=== PATIENT | male | born 1985 | race Caucasian/White ===

== ENCOUNTER → 2019-12-24 13:51 | Outpatient (CLI) | payer OTHER, SELFPAY | PROVIDERS: PCP Internal Medicine; Referring Provider Nurse Practitioner; Visit Provider Nurse Practitioner | DX: R00.2 Palpitations (principal) | CPT/HCPCS: 93225; 93226 ==

== ENCOUNTER 2020-05-01 09:00 | Outpatient (RCR) | payer OTHER, SELFPAY ==
--- NOTE | 2020-05-01 11:15 | BH.SGPN.GN ---
Behaviors/Verbalizations/Mental Status: []Client alert and oriented, casually dressed, hygiene appeared to be tended to. Eye contact good. Motor activity appropriate. Speech within normal limits. Affect unable to gather due to wearing a mask for COVID-19 protocol, mood depressed. Thoughts linear, logical, no signs of hallucinations or delusions Client Response/Progress/Benefit: []Client responded well to session, attentive and mostly passive. Group discussed the negative consequences of not acknowledging one?s strengths. Connected with the benefits of recognizing personal strengths on improving mental health which included: increased self-confidence, increased willingness to try new things, and better management of symptoms. Client struggled to identify personal strengths, but was eventually able to identify love of learning, curiosity, and intelligence as strengths. Client attentive while the group discussed strategies to help them acknowledge strengths more often. Appeared to benefit from recognizing personal strengths and identifying strategies to increase recognition of strengths. Will continue IOP tx to prevent decompensation, improve daily functioning, and reduce negative thinking that reinforces depression. Narrative Note: []
--- NOTE | 2020-05-02 08:37 | BH.COMM ---
Communication Note - Communication with Client Communication Note: Met with pt to complete inital paperwork. No significant changes since pre-admission screening. Completed [facility] [facility] Scre[facility]. Low risk. No SI in the past month.
--- NOTE | 2020-05-03 09:07 | BH.NA_ITS ---
Physical Data - Vital Signs Pulse Rate: 72 Blood Pressure: 132/84 - Height/Weight Height: 1.8 m - stated Weight:: 116.573 kg - actual Weight in Pounds: 257.0 lbs Nutritional History - Appetite Nutritional Instructions:: If client shows signs of a swallowing problem, weight change of 10 pounds or more in the last month, or is on a diabetic diet, the physician will review and request a dietitian consult, as appropriate. All unintentional weight loss will be referred to the physician for decision on need for dietitian consult. Describe your appetite:: Good Have you noticed a change in your eating habits lately?: Yes - Client states increased appetite and stress eats. Functional Assessment - Sleep Pattern Describe any problems with sleeping: Client states difficulty falling asleep and difficulty waking up. Client states that he recieves an average of 6-8 hours/night. - Activities Motor Activity:: Functional Sensory/Communication Assess - Communication Problems Do you have difficulty understanding what people are saying?: No Medical Problems/History - Additional History Additional comments:: Client states h/o Depression and Anxiety. Surgical History - Surgical History Have you had any surgeries? If so, list type and date:: Yes - Vasectomy Substance Abuse - Substance Abuse Please describe substance abuse in the last 30 days:: Client states he drinks a beer daily. Client states past smoking history, quit 17yrs ago, denies current tobacco use. Client states substance use consisting of marijuana but denies any current substance use. Client states consumes caffiene daily consisting of coffee and/or pop. Mental Status Summary - Mental Status Significant Findings/Observations on Appearance and Mood:: Client is alert and orientede x4. Client is casually groomed. Client is cooperative with assessment, eye contact is fair during conversation. Client's speech with normal rate and volume, coherent and spontaneous. Client appears mildly depressed and mildly anxious during assessment. Client makes logical associations, normal processing. Client denies delusions and hallucinations, none evident. Client appears with good judgement and insight. Suicide Assessment - Suicidal Ideation Are you currently or have you been suicidal in the past?: Yes - Client states SI in past as a child. Client denies current SI/HI. Suicidal Intentional Rating Scale (SIRS): Suicidal thoughts (past) Physician Notification: If Active suicidal thoughts/Will not contract for safety is checked, contact physician and document in the Physician Notification section below. Past Psychiatric History - MH Treatment Hx Past Psychiatric Medications:: Client states has been on past psychiatric medications consisting of Valium, Effexor, and many others. Age of first mental health symptoms: Client states that he was officially diagnosed and placed on medication at approximately age 20. Client states that he was seeing a therapist since 9yo. Describe (age, circumstance, etc) any past hospitalizations: Client denies any past psychiatric hospitalizations. Current providers for mental health treatment (counselor, psychiatrist, family caseworker, etc.): Client states director of clinical trials Lew Curtis and therapist is Honorio Nina. Fall Risk Assessment - Age Age: Less than 60 - Mental Status Mental Status: Willing & able to ask for assistance when needed - Physical Status Physical Status: No problems - Impairments Impairments: None - Elimination Elimination: Continent AND independent - Gait or Balance Gait or Balance: Walks independently - Hx of Falls History of falls in the past 6 months: No known history - Medications/Substances Psychotropics:: Antidepressants, Anxiolytics (e.g. benzodiazepines) Medications/substances used within the past 24 hours or ordered to administer: 1-2 of the medications/substances listed above - Total Score Total Points:: 1 RN Summary of Impressions - Impressions Recommendations: Include psychiatric and medical issues, treatment planning recommendations, and discharge planning needs. Impressions: Psychiatric Issues: Major depressive disorder, recurrent, severe without psychosis; panic disorder; anxiety disorder, NOS. - Level of Care How do the client's current symptoms and functional deficits support need for this level of care?: Client details onset of current episode, stating his symptoms started getting worse approximately 8-10 months ago, however feels over the past month it has progressively worsened more. Client states that is mental health symptoms and work are stressors. Client states that he cannot pin point if disiplinary action by employer was caused from his mental health conditions causing poor performance at work or poor performance causing the mental health symptoms. 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 Client states that he has been experiencing panic attacks. IOP will promote gains and prevent further decompensation while providing social support and skills training.
[2020-05-03 09:56] VITALS: BP 132/84; PULSE 72
--- NOTE | 2020-05-03 11:19 | BH.SGPN.GN ---
Behaviors/Verbalizations/Mental Status: [] Client alert and oriented, casually dressed and groomed. Eye contact fair, avoidant. Motor activity appropriate. Speech within normal limits, quiet and limited input provided. Affect unable to gather due to client wearing a mask for COVID-19 protocol. mood anxious and depressed. Thoughts linear, logical, no signs of hallucinations or delusions. Client Response/Progress/Benefit: [] Pt was engaged throughout AEB nodding and taking notes during discussion, however remained a passive participant throughout. Pt actively listening as the group identified internal consequences of ignoring or not managing stressors resulting in anger. Group identified: isolation, decreased self-esteem, guilt, increased depression, and problems not being resolved as potential consequences. Pt again remained attentive as group brainstormed healthy coping skills for better managing anger which included: deep breathing, music, exercise, taking breaks, and talking to a healthy support. Pt completed the worksheet activity, however declined share skills pt selected to incorporate this week to manage anger. Pt appeared to benefit from identifying different techniques to manage anger as well as gaining awareness of potential consequences of unmanaged anger. Progress limited due to it being pt second day in IOP group and still struggling to adjust to the group environment. Pt to continue IOP tx to increase healthy coping, improve management of depression, and prevent decompensation. Narrative Note: []
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
--- NOTE | 2020-05-03 13:21 | BH.PSY.EVA_ITS ---
Initial Treatment Plan - Patient Information Visit Information: ADMISSION DATE: EXPECTED LOS: 4-6 weeks - Problems/Symptoms Problem #1:: Depression Symptom:: sadness, anhedonia, hopelessness, worthlessness, decreased concentrat ion, guilt, low energy Problem #2:: Anxiety Symptom:: worry, rumination, panic attacks
--- NOTE | 2020-05-05 09:00 | BH.SGPN.GN ---
Behaviors/Verbalizations/Mental Status: []Client alert and oriented, neatly dressed and groomed. Eye contact poor. Motor activity appropriate. Speech within normal limits. Affect unable to gather due to wearing a mask for COVID-19 protocol, mood depressed. Thoughts linear, logical, no signs of hallucinations or delusions. Reviewed client?s symptom tracker, no risk for suicidal ideation, plan, or intent as of 05/05/20. Client Response/Progress/Benefit: []Client responded well to session, receptive to feedback from peers. Client reports feeling confused today. Client stated he has this continual Friday feeling which client describes as constant agitation and dread. Client reported this is first week in IOP and he is not sure of what to expect still. Client struggled to identify positives at first, but with gentle challenging from therapist, client identified seeing his outpatient therapist last night and it being Friday as positives. Appeared to benefit from receiving supportive statements from peers. Will continue IOP tx to prevent decompensation of symptoms, improve daily functioning, and decrease distortions. Narrative Note: []
--- NOTE | 2020-05-05 10:03 | BH.SGPN.GN ---
Behaviors/Verbalizations/Mental Status: []Client alert and oriented, casual dress, hygiene tended to. Eye contact fair. Motor activity appropriate. Speech within normal limits. Affect could not be assessed due to pt wearing a face mask as precaution against coronavirus. mood depressed. Thoughts linear, logical, no signs of hallucinations or delusions. Client Response/Progress/Benefit: []Pt engaged in session AEB pt providing input at times during discussion and listening attentively to peers. Pt reported sometimes after setting a boundary he won't follow through with the boundary because feels too guilty. Seemed to recognize how lack of follow through with boundaries impacts her mental health negatively. Pt assisted group with identifying that boundaries can impact the following: how much someone takes advantage of you, either bring people closer or push people away, keep us safe, reduce the risk of peer pressure, impact positive or negative self-worth. Pt seemed to benefit from increased awareness of how poor boundaries can negatively impact mental health. Will continue IOP tx to increase use of healthy coping, work on self-forgiveness from past mistakes, and prevent decompensation. Narrative Note: []
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
--- NOTE | 2020-05-05 13:40 | BH.MTP_ITS ---
Master Treatment Plan - Patient Information Program Physician:: Dr. Paula Mcneil Primary Therapist:: Bel Leroy - Psychiatric Diagnoses Psychiatric Diagnoses:: Major depressive disorder, recurrent, severe without psychosis F33.2; panic disorder; anxiety disorder, NOS. Diagnosis Code(s):: F 33.2 - Estimated LOS Estimated LOS (in weeks):: 6 Problem/Goal #1 - Problem/Goal #1 Stated Goal:: Client will reduce depressive symptoms, worthlessness, lack of concentration, and negative core beliefs associated with major depressive disorder. Description of Barriers: Client has a history of trauma as a child as well as a history of one previous suicide attempt as a child. Client reports long-standing history of low self-esteem, distorted image of self, and difficulty giving himself credit for things. Client reports I can justify anything which makes it difficult for client to challenge negative thinking. Client's work is a significant source of stress for client. Client reports feeling like he is in a professional crisis as he has applied to several jobs with no luck. Client also reports the state of the world as a contributor for his worsening mental health. Functional Impact: Client is a 35-year-old male with a history of MDD, KESHAWN, and PTSD. Client was referred to [facility] by his outpatient therapist due to worsening mental health symptoms impacting client's functioning at home and at work. Client reports belief that his mental health is impacting his work and leading to 'brown outs or lost time. Client has been disciplined by his employer and client is fearful he will be terminated. Client reports significant anhedonia, feeling lost and adrift, poor sleep, hopelessness, low motivation, low energy, isolation, and increased appetite. Client also endorses panic attacks 1-2 times a week, ruminations, and negative thinking that reinforcing anxiety, depression, and low self-esteem. Client's symptoms are causing significant impairment in client's social, occupation, and family functioning. Goal Relevant Strengths/Supports: Client presents as a kind, funny, intelligent, and motivated to improve his mental health symptoms. Client is connected with outpatient counseling and psychiatry services. Client reports support from his and has two children. Client is knowledgeable of some coping skills and willing to learn alternative ways to manage mental health symptoms. - Objectives Objective #1 Stated Objective: Client will learn and utilize 2-3 healthy coping strategies to manage depressive symptoms as shown by reduced DSM-5 cross-cutting symptom measure score. Interventions: Through group and individual sessions, therapist will assist client in learning internal coping strategies to manage depressive symptoms, along with helping client identify triggers. Therapist will teach client about self-compassion, self-care, and personal resilience factors and how they can benefit the healing process. Discharge Criteria: Client will have achieved this goal when his DSM-5 symptoms for depression have decreased and he can verbalize and has practiced at least 2 healthy coping strategies. Target Date: 06/12/20 Review Date: 05/31/20 Status: open Objective #2 Stated Objective: Client will identify and replace 2-3 negative thinking patterns that reinforce depressive symptoms, self-hate, and negative self-talk. Interventions: Through groups and individual therapy, client will be provided with education on cognitive distortions, mistaken beliefs, and identifying and combating negative self-talk. Therapist will assist client in recognizing triggers for increased self-deprecating and depressive thought patterns. Therapist will help client explore connection between thoughts, feelings, and actions and help client reframe depressive thought patterns. Therapist will help client gain awareness of why client has developed negative thoughts and core beliefs of self and teach client how to reframe these thoughts. Discharge Criteria: Client will have accomplished this goal when client can identify and replace at least 2 negative thinking patterns with more realistic, positive statements. Target Date: 06/12/20 Review Date: 05/31/20 Status: open Problem/Goal #2 - Problem/Goal #2 Stated Goal:: Client will reduce overall frequency, intensity, and duration of anxiety to improve functioning. Description of Barriers: Client has a history of trauma as a child as well as a history of one previous suicide attempt as a child. Client reports long-standing history of low self-esteem, distorted image of self, and difficulty giving himself credit for things. Client reports I can justify anything which makes it difficult for client to challenge negative thinking. Client's work is a significant source of stress for client. Client reports feeling like he is in a professional crisis as he has applied to several jobs with no luck. Client also reports the state of the world as a contributor for his worsening mental health. Functional Impact: Client is a 35-year-old male with a history of MDD, KESHAWN, and PTSD. Client was referred to [facility] by his outpatient therapist due to worsening mental health symptoms impacting client's functioning at home and at work. Jodi marin reports belief that his mental health is impacting his work and leading to 'brown outs or lost time. Client has been disciplined by his employer and client is fearful he will be terminated. Client reports significant anhedonia, feeling lost and adrift, poor sleep, hopelessness, low motivation, low energy, isolation, and increased appetite. Client also endorses panic attacks 1-2 times a week, ruminations, and negative thinking that reinforcing anxiety, depression, and low self-esteem. Client's symptoms are causing significant impairment in client's social, occupation, and family functioning. Goal Relevant Strengths/Supports: Client presents as a kind, funny, intelligent, and motivated to improve his mental health symptoms. Client is connected with outpatient counseling and psychiatry services. Client reports support from his and has two children. Client is knowledgeable of some coping skills and willing to learn alternative ways to manage mental health symptoms. - Objectives Objective #1 Stated Objective: Client will identify 2-3 cognitive distortions or mistaken beliefs that lead to rumination and learn 2-3 ways to manage these thoughts to reduce anxiety. Interventions: Therapist will provide education on the most common cognitive distortions and teach client the connection between thoughts, emotions, and feelings. Therapist will assist client in identifying, challenging, and replacing dysfunctional thoughts with positive, more realistic thoughts. Therapist will use CBT and DBT techniques to help client gain awareness of thinking errors and learn how to more effectively handle negative thoughts. Therapist will also help client increase his distress tolerance skills. Discharge Criteria: client will have accomplished this goal when can identify at least 2 cognitive distortions and at least 2 coping skills to manage negative th oughts. Target Date: 06/12/20 Review Date: 05/31/20 Status: open Objective #2 Stated Objective: Client will identify 2-3 anxiety triggers and 2 calming coping skills to reduce anxiety as shown by decreased DSM-5 cross cutting symptom measure scores. Interventions: Therapist will help client increase awareness of anxiety triggers and educate client on the ways anxiety impacts overall health. Therapist will teach client various calming and mindfulness strategies to promote emotional regulation and reduction of anxiety. Therapist will encourage client to implement healthy coping skills on a regular basis. Discharge Criteria: Client will have accomplished this goal when can report at least 2 triggers for anxiety and 2 calming strategies to manage symptoms. Additionally, client will have accomplished this goal when she can report reduced DSM-5 cross cutting symptoms for anxiety. Target Date: 06/12/20 Review Date: 05/31/20 Status: open
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
--- NOTE | 2020-05-08 09:00 | BH.SGPN.GN ---
Behaviors/Verbalizations/Mental Status: []Client alert and oriented, casually dressed and groomed. Eye contact fair. Motor activity appropriate. Speech WNL. Affect unable to gather due to wearing a mask for COVID protocol. Mood agitated. Thoughts linear, no signs of hallucinations or delusions. Reviewed client's daily symptom tracker, no risk noted for suicidal ideations or intent. Client Response/Progress/Benefit: []Client responded well to session, attentive and engaged. Client reports feeling all over the place, but kind of okay today. Client shared he is apprehensive about his mood improving as client reports belief that the only reason for this is being off work. Receptive to gentle challenging from therapist. Client reported he used a healthy coping skills by removing twitter from his phone. Client shared he got his [place] paperwork taken care of which reduces some stress as well. Client continues to endorse anhedonia, ruminations, and a depressed/anxious mood. Client shared he worries about returning to work and how this will impact client's mental health. Appeared to benefit from gentle thought challenging and connecting with peers. Will continue IOP tx to promote the use of healthy coping skills, reduce negative thoughts, and improve daily functioning. Narrative Note: []
--- NOTE | 2020-05-08 10:12 | BH.SGPN.GN ---
Behaviors/Verbalizations/Mental Status: []Client alert and oriented, casually dressed. Eye contact fair. Motor activity appropriate. Speech within normal limits. Affect could not be assessed due to pt wearing a mask as a precaution during the Covid-19 pandemic. Mood depressed. Thoughts linear, logical, no signs of hallucinations or delusions. Client Response/Progress/Benefit: []Pt receptive to session, listening attentively to others and providing input when elicited by therapist. Appeared to listen as the group brainstormed the positive and negative aspects of stress on physical and mental health. Group worked together to define stress and provided input during discussion about eustress vs distress. Client identified his stressors include: dissatisfied with job, looking for a job during the pandemic, money problems, fear about kids having to return to school during the pandemic. Client states when he is overwhelmed with stress he shuts the world out and has a freeze response. Seemed to benefit from increased awareness of his current stressors and impact of too much stress on the mind and body. Recommended to continue IOP tx to increase healthy skill application, increase acceptance of anxious thoughts, and prevent decompensation. Narrative Note: []
--- NOTE | 2020-05-08 11:21 | BH.SGPN.GN ---
Behaviors/Verbalizations/Mental Status: []Client alert and oriented, casually dressed and groomed. Eye contact good. Motor activity appropriate. Speech within normal limits, soft. Affect unable to gather due to wearing a mask for COVID-19 protocol, mood depressed, anxious. Thoughts linear, logical, no signs of hallucinations or delusions. Client Response/Progress/Benefit: [] Pt engaged in session as evidenced by listening attentively to others and taking notes. Remained mostly passive throughout. Pt attentive during discussion about the 4 A's and taking notes as group discussed strategies for practicing each. Pt expressed experiencing some difficulties in identifying a skill for managing one of his current identified stressor of finding a new job. Pt discussed feeling the skills did not fit his current situation, though with help from the group was able to identify possible skills to use. Pt seemed to benefit from increased awareness of the impact of stress on mental health and review of stress management strategies. Progress noted in increased engagement and willingness to think about ways of applying skills learned to his own life. Will continue IOP tx to promote use of healthy coping skills, continue to reduce anxiety and depression levels, prevent decompensation, and improve mood stability. Narrative Note: []
--- NOTE | 2020-05-09 09:05 | BH.SGPN.GN ---
Behaviors/Verbalizations/Mental Status: [] Eye contact is good. Motor activity is appropriate. Appearance is casual. Speech is Appropriate. Mood is anxious. Affect is congruent. Thoughts are linear and logical. No evidence of psychosis. Reviewed daily check in sheet and no reports of suicidal ideations or intent. Client Response/Progress/Benefit: [] Pt was an active participant in group discussion. Emotion for today is positive however is skeptical that it will last. Notes decreased anxiety however is quick to negate progress stating only reason is that I've been off work. Shared that he is slowly trying to change his routine in regards to unhealthy behaviors and thinking. States that it has been awkward and difficult however is optimistic. Also shared some communication challenges with . Progress noted per pt report. Benefited from group support, encouragement, and feedback. Will continue in IOP to prevent decompensation and to improve daily functioning. Narrative Note: []
--- NOTE | 2020-05-09 10:15 | BH.SGPN.GN ---
Behaviors/Verbalizations/Mental Status: []Client alert and oriented, casual dress, hygiene tended to. Eye contact fair. Motor activity appropriate. Speech within normal limits. Affect unable to gather due to client wearing a mask for COVID protocol, mood dysthymic. Thoughts linear, logical, no signs of hallucinations or delusions. Client Response/Progress/Benefit: []Client responded well to session, attentive throughout. Listened and participated throughout group discussion defining conflict and the differences between internal and external conflict. Group reported the benefits of addressing conflict as well as identified and discussed consequences of not addressing conflict. Client attentive and contributing during psychoeducation of the different conflict resolution styles. Client reports his conflict style goes from avoiding to competing. Client stated he will avoid conflict and then his emotions will build up over time and client will ?pick fights.? Client shared this impacts his self-esteem and causes client to ?just end up giving in.? Progress noted in client?s increased self-awareness of distortions. Will continue IOP tx to prevent decompensation, increase use of healthy coping skills, and improve daily functioning to help client return to work. Narrative Note: []
--- NOTE | 2020-05-09 11:17 | BH.SGPN.GN ---
Behaviors/Verbalizations/Mental Status: [] Client alert and oriented, casually dressed and groomed. Eye contact good. Motor activity appropriate. Speech within normal limits. Affect unable to gather due to wearing a mask for COVID-19 protocol, mood depressed and anxious. Thoughts linear, logical, no signs of hallucinations or delusions. Client Response/Progress/Benefit: [] Pt engaged in session AEB listening attentively to others and providing input throughout. Increased contribution to group compared with prior sessions. Pt did well to participate during the activity in which participants were challenged to eliminate various items through group census. Pt contributed to processing discussion identifying conflict resolution skills used to complete the task, as well as identify additional skills for better managing conflict in daily life. Appeared to benefit from psychoeducation regarding impact of conflict on mental health and relationships and working with group to identify healthy skills for conflict resolution. Pt expressed knowing he struggles with avoidance though declined to identify a conflict resolution skill he could use this week to reduce avoidance behaviors. Progress limited as pt continues to struggle with internalizing and applying skills learned to managing his own mental health sx. Will continue IOP tx to promote use of healthy coping skills, continue to reduce negative thinking, and improve mood stability. Narrative Note: []
--- NOTE | 2020-05-11 10:12 | BH.SGPN.GN ---
Behaviors/Verbalizations/Mental Status: []Client alert and oriented, casually dressed. Eye contact good. Motor activity appropriate. Speech within normal limits. Affect congruent, though difficult to assess as pt wearing mask per COVID-19 protocol. mood depressed and anxious. Thoughts linear, logical, no signs of hallucinations or delusions. Client Response/Progress/Benefit: []Client engaged throughout session AEB providing input to discussion and taking notes throughout. Connected with discussion on how coping with external crises by using unhealthy coping skills could result in a personal crisis. Client noted that ?sometimes it?s difficult to differentiate what?s in your control and what?s not, making it hard to manage potential crisis?. Group reported that it is important to have awareness of warning signs which can prevent reaching crisis point. Group identified warning signs for crisis and client completed the personal warning signs worksheet. Client identified personal crisis warning signs to include: difficulty concentrating, memory problems, and loss of motivation. Benefited by increasing awareness of crisis and personal warning signs. Progress noted in client increased engagement and insight into own mental health warning signs. Will continue IOP tx to increase healthy coping, improve mood stability, and prevent decompensation. Narrative Note: []
--- NOTE | 2020-05-11 11:11 | BH.SGPN.GN ---
Behaviors/Verbalizations/Mental Status: []Client alert and oriented, casually dressed and groomed. Eye contact fair. Motor activity appropriate. Speech within normal limits. Affect unable to gather due to client wearing a mask for COVID-19 protocol. Mood dysthymic. Thoughts linear, logical, no signs of hallucinations or delusions. Client Response/Progress/Benefit: []Client responded well to session as evidenced by client listening attentively to others and providing input throughout session. Client identified his warning signs for crisis and gained further awareness of earliest warning signs. Client used the warning signs: difficulty concentrating, negative thinking, and loss of motivation to create his crisis plan. Client created a crisis action plan to help client better manage warning signs for crisis. Client?s plan included: making a checklist, removing distractions, setting realistic expectations, positive affirmations, opposite action, and trying enjoyable activities. Client recognizes that his family and coworkers can help client. Client appeared to benefit from creating a crisis action plan and increasing self-awareness. Client to continue IOP tx to prevent decompensation, improve the use of healthy coping skills, and increase work-related functioning. Narrative Note: []
--- NOTE | 2020-05-12 09:01 | BH.SGPN.GN ---
Behaviors/Verbalizations/Mental Status: []Client alert and oriented, casual dress. Eye contact good. Motor activity appropriate. Speech within normal limits. Mood dysthymic, anxious. Affect congruent, though difficult to gather due to client wearing mask per [address] guidelines. Thoughts linear, logical, no signs of hallucinations or delusions. Reviewed client?s symptom tracker, no signs of suicidal ideation, plan, or intent as of today. Client Response/Progress/Benefit: []Pt responded well to session, actively engaged throughout and providing increased input compared to prior sessions. Reports feeling anxious, confused, and excited today which he attributes to having mixed feelings about the mental health homework he had been given earlier this week. Described that he was to work on identifying areas in which he has accomplished something and practice giving himself credit for these things. Pt expressed mixed emotions as he is excited to be working on an area of his life he has struggled so significantly with but is also anxious about doing so. Discussed experiencing disqualifying thoughts and struggling to manage discomfort of working on his goal. Pt was receptive of and appeared to benefit from support and suggestions for improving comfort in use of positive affirmations provided by the group. Progress noted in pt self-report of improved utilization of opposite action skills and increased tx engagement. Will continue IOP tx to increase coping skills which promote mood stability, improve daily functioning, and reduce intensity of symptoms. Narrative Note: []
--- NOTE | 2020-05-12 10:15 | BH.SGPN.GN ---
Behaviors/Verbalizations/Mental Status: []Client alert and oriented, neatly dressed and groomed. Eye contact good. Motor activity appropriate. Speech within normal limits. Affect unable to gather due to wearing a mask for COVID-19 protocol, mood depressed and anxious. Thoughts linear, logical, no signs of hallucinations or delusions. Client Response/Progress/Benefit: []Client active participant in group AEB client contributing thoughts and ideas throughout session and listening attentively to peers. Client connected with the quote and shared ?I?m really good at imagining the failure states but not the successful ones.? Group worked together to identify barriers to making changes or taking action in their lives which included: habits, negative mindset, fear of failure, negative thinking, lack of resources, and toxic people. Group also identified that even though there are barriers to change, change is important in order to improve mental health. Client identified areas he would like to take back control over in life to include: fear of failure, lack of self-esteem, lack of self-confidence, and shutting down when he gets overwhelmed. Client shared these things are ?keeping me from where I should be.? Benefited from group through awareness of personal areas she wants to improve and benefits to taking action towards mental wellness. Will continue IOP tx to further decrease negative thinking that reinforces depression and anxiety, improve self-talk, and improve mood stability. Narrative Note: []
--- NOTE | 2020-05-12 12:41 | BH.MDN ---
Multi-Disciplinary Note - Note 60-min Individual Time Started:: 11:24 Date: 05/12/20 Purpose of session/treatment goals addressed:: The purpose of this session was to address current symptoms, stressors, and homework. Another goal was to practice cognitive restructuring and dialectic thinking. Other topics included: vulnerability and self-compassion. Eye Contact:: Fair Motor Activity:: Appropriate Appearance:: Casual Speech:: Appropriate Mood:: Anxious, Dysthymic Affect:: Congruent - tearful Thoughts:: Linear, Logical, No evidence of hallucinations/delusions noted Staff Interventions:: Therapist used active listening and open-ended questions to explore client's current stressors, symptoms, and completion of homework. Therapist provided emotional support and processed homework with client. Therapist provided psychoeducation on maintenance cycles and dialectical thinking. Therapist used cognitive restructuring to help client identify and challenge unrealistic expectations that reinforce self-depreciation, self-judgement, and fear of failure. Therapist used strengths perspective to empower client on his resilience and helped client identify times he has succeeded in the past. Therapist gave client homework to watch a TedTalk on the power of vulnerability, write this weekend, and practice dialectical thinking. Client Response:: Client responded well to session, open to meeting with therapist. Client shared he completed the homework and it was really hard. Client acknowledges that he has a lot of negative thoughts about himself. Client shared he frequently uses labeling, disqualifying the positives, and overgeneralizing. 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 Client recognizes that he has been using self-talk like this for years, so it will take time to challenge these thoughts. Client also gained awareness that he is often interrupted by failure memories and that he rarely focuses on his successes, even though he logically knows he has them. Receptive to discussion of dialectical thinking and how it can help challenge client's distorted thoughts of self. Connected with the example of I'm struggling and I have made progress. Client recognized that his job and failure are his two biggest triggers for negative thinking. Discussed how working through these thoughts will require work and vulnerability. Client reported belief he is not a vulnerable person and shared he views vulnerability as weakness. Challenged this belief and willing to watch a TedTalk on the power of vulnerability. Client also willing to write this weekend and practice dialectical thinking. Risks/Concerns:: Client denies any active suicidal ideations, plan, or intent as of 05/12/20. Progress Toward Goals/Plan:: Client appears to be making positive strides AEB client completing his homework from last session and participation in group sessions. Client reports feeling somewhat better from last week, but client is fearful because I think it's just because I'm off work. Client continues to endorse a depressed mood, anhedonia, crying spells, low self-esteem, lack of concentration, ruminations, and anxiety. Client identified numerous cognitive distortions he has about himself and is willing to work on these. Will continue IOP tx to prevent decompensation of symptoms, increase self-confidence, and improve daily functioning. Time Stopped:: 12:25
--- NOTE | 2020-05-15 09:01 | BH.SGPN.GN ---
Behaviors/Verbalizations/Mental Status: []Client alert and oriented, casual dress, hygiene tended to. Eye contact fair, often looking down. Motor activity appropriate. Speech within normal limits. Affect constricted, mood depressed, anxious. Thoughts linear, logical, no signs of hallucinations or delusions. Reviewed client?s symptom tracker, pt denies current suicidal thoughts or intention to date. Client Response/Progress/Benefit: [] Pt was an active listener throughout group discussion, willing to openly process thoughts and emotions with the group. Pt stated feeling ?agitated/frustrated? today as he has been continuing to struggle with negative thoughts about having to eventually return to work. Pt shared that he knows he will be miserable if he returns but feels it is the only option. Went on to indicate that he had considered staying home with his for the next year as they will be homeschooled due to the COVID-19 pandemic; however, is apprehensive of his ability to manage caregiving responsibilities as well. Expressed feeling overwhelmed and trapped by unappealing choices. Appeared to benefit from support of the group and fellow participants helping to encourage and normalize pt current frustrations. He did well to identify how focusing on his mental health is most important and that he can use his supports to help make his decision as well. Pt continues to struggle with low self-esteem and distorted thoughts. Pt recommended to continue IOP level of care to increase healthy coping, improve mood management, and prevent decompensation. Narrative Note: []
--- NOTE | 2020-05-15 10:20 | BH.SGPN.GN ---
Behaviors/Verbalizations/Mental Status: []Client alert and oriented, casual dress, hygiene tended to. Eye contact fair. Motor activity appropriate. Speech within normal limits. Affect could not be assessed due to pt wearing a face mask as precaution against coronavirus. mood depressed. Thoughts linear and logical. No evidence of delusions or hallucinations. Client Response/Progress/Benefit: []Pt passive participant AEB pt providing limited input throughout session, however did appear to be taking notes and listen attentively to peers. Pt appeared to connect with the topic of fear of failure. Pt stated when he experiences failure he feels embarrassed, difficult to accept and the consequences are lingering. Pt reported fear of failure has held him back from trying new things. Pt stated he sets him self up to fail at times by having the expectation prior to an activity or task that he won't be able to do it. Engaged and positive during the group activity. Pt appeared to benefit from gaining awareness of the impact of fear of failure can have on one?s mental health and wellbeing. Progress seems hindered by pt's continued difficulty with challenge negative and distorted thoughts. Will continue IOP tx to increase use of healthy coping skills, challenge distorted thoughts and prevent decompensation. Narrative Note: []
--- NOTE | 2020-05-15 11:20 | BH.SGPN.GN ---
Behaviors/Verbalizations/Mental Status: []Client alert and oriented, casual appearance. Eye contact good. Motor activity appropriate. Speech within normal limits. Affect unable to gather due to wearing a mask for COVID-19 protocol, mood dysthymic. Thoughts linear, logical, no signs of hallucinations or delusions. Client Response/Progress/Benefit: []Client responded well to session, participating during the group activity and willing to complete the worksheet. 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 Client able to identify barriers that reinforce fear of failure which included: procrastination, disorganization, apathy, perception of past events, freezing up in the face of stress, and cognitive distortions. Client attentive during discussion of the different strategies to help overcome fear of failure. Group identified strategies such as: getting comfortable with the uncomfortable, identifying strengths, setting boundaries, self-compassion, and reaching out to supports. Client appeared to benefit from learning ways to overcome fear of failure. Will continue IOP tx to reduce negative thinking that reinforces depression and anxiety, improve mood stability, and increase self-confidence. Narrative Note: []
--- NOTE | 2020-05-16 09:05 | BH.SGPN.GN ---
Behaviors/Verbalizations/Mental Status: [] Eye contact is good. Motor activity is appropriate. Appearance is casual. Speech is Appropriate. Mood is depressed. Affect is flat. Thoughts are linear and logical. No evidence of psychosis. Reviewed daily check in sheet and no reports of suicidal ideations or intent. Client Response/Progress/Benefit: [] Pt was an active participant in group discussion. Emotion for today is grumpy. Frustrated and discouraged. Ruminating on his job and whether or not he should return. Do I work or not. Not confident he can motivate himself and follow through with responsibilities. He again began to overthink and over-analyze which led to immobility and no action. Discussed how this has impacted areas of his life in regards to decision-making. Group provided feedback regarding decision making strategies and emotions related to change. Pt was responsive. Benefited from group feedback, support, and encouragement. Will continue in IOP to prevent decompensation, stabilize mood, and improve functioning to return to work. Narrative Note: []
--- NOTE | 2020-05-16 10:16 | BH.SGPN.GN ---
Behaviors/Verbalizations/Mental Status: []Client alert and oriented, casual dress, hygiene tended to. Eye contact good. Motor activity appropriate. Speech within normal limits. Affect constricted, mood dysthymic. Thoughts linear, logical, no signs of hallucinations or delusions. Client Response/Progress/Benefit: []Engaged participant AEB pt providing input throughout session, listening attentively to others and taking notes. Engaged during psychoeducation portion reviewing fixed mindset. Pt worked with group to identify how a fixed mindset can impact our mental health which included: decreased motivation, giving up when faced with a setback, not asking for help, low self-esteem, and staying stuck. Seemed to connect with others when discussing example fixed mindset thoughts. Pt identified one fixed thought he has is, I should have done something different. Pt did well to recognize that this fixed thought leads to pt feeling negative about his choices in the past and has difficulty moving forward. Seemed to benefit from group by increasing awareness of how one's mindset impacts mental health. Pt to continue IOP level of care to increase utilization of healthy coping skills, continue to practice challenging negative and distorted thoughts, and prevent decompensation. Narrative Note: []
--- NOTE | 2020-05-16 11:16 | BH.SGPN.GN ---
Behaviors/Verbalizations/Mental Status: [] Client alert and oriented, casually dressed and groomed. Eye contact fair, often looking down. Motor activity appropriate. Speech within normal limits, quiet. Affect unable to gather due to client wearing a mask as part of COVID-19 protocol. mood anxious and depressed. Thoughts linear, logical, no signs of hallucinations or delusions. Client Response/Progress/Benefit: [] Client actively listening during discussion and taking notes throughout. Client did well to work with group on identifying characteristics and benefits of adopting a growth mindset. Client provided input during example activity in which participants helped reframe example fixed thoughts into growth mindset thoughts. Reports that being able to reframe thoughts could improve self-confidence. Client worked to apply skills learned to reframe his own personal fixed thoughts. Reframed thought of ?I don?t deserve it? with growth mindset thought of ?Even though I may have made mistakes in the past, I am worthy of happiness and success?. Noted that this would aid in improving self-esteem. Benefitted from discussing benefits of growth mindset and brainstorming strategies for prompting growth-mindset. Client progress noted in self-report of improved ability to apply thought challenge skills. Will continue IOP tx to continue to promote active thought challenging and skill application as well as improve healthy coping repertoire. Narrative Note: []
--- NOTE | 2020-05-18 09:05 | BH.SGPN.GN ---
Behaviors/Verbalizations/Mental Status: [] Eye contact is good. Motor activity is appropriate. Appearance is casual. Speech is Appropriate. Mood is depressed. Affect is flat. Thoughts are linear and logical. No evidence of psychosis. Reviewed daily check in sheet and no reports of suicidal ideations or intent. Client Response/Progress/Benefit: [] Pt was an active participant in group discussion. Emotion for today is useless. Pt has been ruminating on several things related to work and his struggles in mental health. Was recently told by a family member that he is has passive dependency and he has been looking this up and trying to self-analyze. Majority of his concern lays with her ability to manage his unrealistic expectations of himself in his careers. Discusses some perfectionistic traits I have have to do everything the right way w/o mistakes Significant absolute thinking If I make a mistake I'm incompetent. Group attempted to challenge beliefs however pt was only somewhat receptive. Group also provided support and encouragement. No progress noted. Pt continues to struggle with thoughts which immobilize him. Anxiety about taking action. Will continue in IOP to prevent decompensation, improved functioning to return to work, and increase healthy coping skills. Narrative Note: []
--- NOTE | 2020-05-18 11:20 | BH.SGPN.GN ---
Behaviors/Verbalizations/Mental Status: []Client alert and oriented, casually dressed and grooming appropriate. Eye contact fair, often looking down at table. Motor activity appropriate. Speech within normal limits, quiet. Affect congruent though difficult to determine as client wearing a mask per COVID-19 protocol, mood depressed, anxious, irritable. Thoughts linear, logical, no signs of hallucinations or delusions. Client Response/Progress/Benefit: [] Client engaged in session AEB listening to discussion and taking notes throughout, mostly passive in participation. Client attentive during the continued discussion on what prevents moving on to the ?next chapter? in our life and the importance of problem-solving solutions to address identified barriers. Continued to remain an active listener as peers brainstormed the components of A,B,C,D,E problem solving method and various strategies for promoting follow-through in each stage. Client identified feeling overwhelmed by options as a barrier preventing him from moving to the next chapter in mental health recovery. Shared that by problem-solving this barrier he will feel more confident and capable of making progress forward. Identified weighing his options and beginning to narrow them down as a realistic first step he can take in the problem-solving process. Appeared to benefit from learning about problem solving method and practice applying this to personal barriers identified. Progress limited as client continues to struggle with disqualifying the positives and anxiety preventing him from taking action in healthy decision making. Continues to struggle with distorted thought patterns. Will continue IOP tx to prevent decompensation, maintain gains, and continue to promote healthy change behaviors. Narrative Note: []
--- NOTE | 2020-05-19 09:00 | BH.SGPN.GN ---
Behaviors/Verbalizations/Mental Status: []Client alert and oriented, neatly dressed and groomed. Eye contact good. Motor activity appropriate. Speech within normal limits. Affect unable to gather due to wearing a mask for COVID-19 protocol, mood agitated. Thoughts linear, logical, no signs of hallucinations or delusions. Reviewed client?s symptom tracker, no risk for suicidal ideation, plan, or intent as of 05/19/20. Client Response/Progress/Benefit: []Client responded well to session, receptive to feedback and attentive. Client reports feeling scattered and agitated this morning. Client admits that yesterday he was not present during group and stated I wasn't present because I was resisting. Client stated he brought this up during in outpatient therapy appointment yesterday and processed this which was helpful. Client stated he has been implementing healthy coping skills to help manage depression and anxiety. Client reported he used opposite action this morning to get his laundry done and client acknowledges his self-awareness is improving. Appeared to benefit from reflecting on areas of growth. Progress noted in application of opposite action, but client can continue to reduce his distorted thinking. Will continue IOP tx to promote mood stability, decrease distortions, and further improve daily functioning. Narrative Note: []
--- NOTE | 2020-05-19 10:14 | BH.SGPN.GN ---
Behaviors/Verbalizations/Mental Status: []Eye contact is fair to good. Motor activity is appropriate. Appearance is casual. Speech is WNL, often making jokes, sarcastic remarks. Mood is depressed, agitated, anxious. Affect unable to gather due to wearing a mask for COVID-19 protection, appears congruent. Thoughts are linear and logical. No evidence of psychosis. Client Response/Progress/Benefit: []Pt was actively engaged AEB contributing some to discussion, taking notes, and participating in activity. Remained mostly passive in discussion, however. Connected with the topic of pitfalls and helped the group discuss barriers that keep them from choosing a healthier path to mental wellness. These barriers included; difficulties adjusting to change, fear of failure, habit, and lack of awareness. Pt reported that ?We don?t always know our behaviors are unhelpful?. Client was engaged during the activity and did well to provide support and encouragement to the group. Several times pt appeared to become anxious when the group faced potential failures during the task. He did well to use healthy coping skills to regulate these emotions and was able to advocate for his own needs when wanting to switch roles in the activity. Pt benefited from increased awareness on the impact that pitfalls can have on mental health. Progress noted in pt increased self-reflection and engagement; however, continues to struggle with rumination and distorted thoughts impacting progress. Will continue IOP tx to increase use of thought challenging, improve decision making skills, and better manage mental health sx. Narrative Note: []
--- NOTE | 2020-05-19 14:21 | BH.MDN ---
Multi-Disciplinary Note - Note 60-min Individual Time Started:: 12:16 Date: 05/19/20 Purpose of session/treatment goals addressed:: The purpose of this session was to address current symptoms, stressors, and negative thoughts. Another goal was to practice cognitive restructuring. Other topics included: behavioral activation and return to work. Eye Contact:: Good Motor Activity:: Appropriate Appearance:: Casual Speech:: Soft Mood:: Dysthymic Affect:: Congruent - tearful Thoughts:: Linear, Logical, No evidence of hallucinations/delusions noted Staff Interventions:: Therapist used active listening and open-ended questions to explore client's current stressors, symptoms, and negative thoughts. Therapist provided psychoeducation on maintenance cycles, distorted thoughts, and depression. Therapist used cognitive restructuring to help client identify and challenge distorted thoughts reinforcing depression and anxiety. Therapist helped client challenge a negative thought using a thought log. Therapist gave client homework to engage in behavioral activation activities using ALCIDES (accomplishment, closeness, and enjoyment). Client Response:: Client responded well to session, open to meeting with therapist. Client reported he did not watch the TedTalk, but he has been spending quality time with his family which has been helpful. 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 Client recognizes that his work environment is toxic for client due to the pressures and some of the employees. Client stated this environment triggers a lot of self-deprecating and distorted thoughts. Client willing to challenge one of these thoughts in session which was I am useless. Client stated when he thinks this he becomes very depressed, shuts down, and views himself as a failure. Client receptive to thought challenging which began by client defining useless. Client stated when something is useless it has no purpose and does not contribute. Client acknowledged that he does not meet this definition 100% of the time as client has contributed in many areas of his life. Client reported he is useful to his and children. Client practiced reframing this thought in a thought log. Discussed the cognitive triangle and the benefits behavioral activation can have on challenging distortions. Client receptive to thought challenging and behavioral activation for homework. Risks/Concerns:: Client denies any suicidal ideations, plan, or intent as of 05/19/20. Future oriented and multiple protective factors. Progress Toward Goals/Plan:: Client appears to be making positive strides AEB client?s increased ability to reframe distortions with support from therapist. Client is also engaging well in group sessions, but he continues to struggle with ?getting in my own head? which leads to client withdrawing and ruminating. Client continues to endorse a depressed mood, anhedonia, crying spells, low self-esteem, lack of concentration, ruminations, and anxiety. Client identified numerous cognitive distortions he has about himself and is willing to work on these. Will continue IOP tx to prevent decompensation of symptoms, increase self-confidence, and improve daily functioning. 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 Time Stopped:: 13:10
--- NOTE | 2020-05-23 09:00 | BH.SGPN.GN ---
Behaviors/Verbalizations/Mental Status: []Client alert and oriented, neatly dressed and groomed. Eye contact fair. Motor activity appropriate. Speech within normal limits. Affect unable to gather due to wearing a mask for COVID-19 protocol, mood anxious and depressed. Thoughts linear, logical, no signs of hallucinations or delusions. Reviewed client?s symptom tracker, no risk for suicidal ideation, plan, or intent as of 05/23/20. Client Response/Progress/Benefit: []Client responded well to session, attentive and listening to feedback from group. Client reports feeling agitated and really anxious this morning. Client reports next week he returns to work part-time and he is extremely anxious about how his return will go. Client reports I've been in the dark since I've been off for a month. Client shared he struggles with making a decision regarding work as client recognizes his work environment is toxic to his mental health. Client receptive to feedback from peers and encouragement from therapist to practice his calming coping skills. Client shared he knows he has positives from the weekend, but I just can't think of them right now. Client was encouraged to write out his positives, so that he can revert back to them when his anxiety is higher. Client able to identify cooking and spending time with his family as positives from the weekend. Client shared he goes back and forth with his ability to use the coping skills he has learned in group. Appeared to benefit from feedback from group and gentle challenging from therapist to use healthy coping skills in the moment. Will continue IOP tx to prevent decompensation, improve daily functioning, and increase mood stability. Narrative Note: []
--- NOTE | 2020-05-23 10:12 | BH.SGPN.GN ---
Behaviors/Verbalizations/Mental Status: []Client alert and oriented, casually dressed and groomed. Eye contact fair. Motor activity appropriate. Speech within normal limits, quiet and limited input provided. Affect unable to gather due to wearing a mask for COVID-19 protocol, mood anxious and depressed. Thoughts linear, logical, no signs of hallucinations or delusions. Client Response/Progress/Benefit: [] Client was an engaged participant throughout group session AEB client contributing come input discussion and taking notes throughout, though remaining primarily passive. Client reported connecting with the topic of coping skills and nodded as fellow participants discussed the impact of unhealthy coping on mental health stability. Group identified barriers to using healthy coping skills which included; habit, not wanting to put in the effort, lack of awareness, negative attitude, and toxic environments. Discussed that overthinking has prevented him from using healthier coping mechanisms in the past. Client participated in the activity and was able to take on an active leadership role, as well as provide insight and advice to the group. He expressed connecting with group discussion on the importance of creating a strong foundation of healthy coping skills in order to manage life stressors, though noted that this is difficult at times. Group discussed various skills that can aid in facilitating better application of healthy coping skills which included: accountability, positive self-talk, visual reminders, keeping in mind the consequences of not following through, and creating a routine. Client seemed to benefit from increased awareness of importance of increasing healthy coping skills and consequences of utilizing unhealthy coping skills. Progress noted in increased engagement, though continues to struggle with distorted thought patterns preventing active skill application. Client will continue IOP tx to promote change behaviors, improve ability to better manage depressive symptoms, and reduce distorted thinking patterns. Narrative Note: []
--- NOTE | 2020-05-24 09:00 | BH.SGPN.GN ---
Behaviors/Verbalizations/Mental Status: []Client alert and oriented, neatly dressed and groomed. Eye contact fair. Motor activity appropriate. Speech within normal limits. Affect unable to gather due to wearing a mask for COVID-19 protocol, mood anxious and agitated. Thought blocking and ruminating, no signs of hallucinations or delusions. Reviewed client?s symptom tracker, no risk for suicidal ideation, plan, or intent as of 05/24/20. Client Response/Progress/Benefit: []Client responded well to session, receptive to feedback, but struggling to come up with coping skills. Client reports feeling agitated and upset this morning. Client reported when I'm home everything is fine, but when I get in the car to come here I start ruminating. Client shared he is highly anxious about returning to work part-time next week and these worries consume him on days he gets out of the house to come to [facility]. Client reports because of this anxiety he is feeling drained and wants to shut down. The group discussed healthy coping skills client could use to prevent the continuation of the anxious and depressive maintenance cycles. Client recognizes coming to IOP today was a mental health win because he had to use opposite action and sit with uncomfortable feelings. Client continues to struggle with identifying positives, especially during process group. Appeared to benefit from group thought challenging and feedback. Will continue IOP tx to promote the use of healthy coping skills, reduce intensity and duration of symptoms, and improve mood stability. Narrative Note: []
--- NOTE | 2020-05-24 10:15 | BH.SGPN.GN ---
Behaviors/Verbalizations/Mental Status: [] Eye contact is poor. Motor activity is appropriate. Appearance is casual. Speech is Appropriate. Mood is depressed. Affect is flat. Thoughts are linear and logical. No evidence of psychosis. Client Response/Progress/Benefit: [] Pt had limited participation on group discussion and did not appear engaged in the topic, however was taking notes at times. No progress noted due to lack on engagement Will conitnue in IOP to prevent decompensation, increase healthy coping skills to return to work. Narrative Note: []
--- NOTE | 2020-05-24 11:51 | PCM.BH.PN_ITS ---
Progress Note Progress Note: History of Present Illness/Interim History: [] The patient is a 35-year-old male who is seen in follow-up at the [facility] health IOP program. I last saw the patient 3 weeks ago and at that time I added Wellbutrin XL to his medication regimen. The patient feels that his mood is much better in the past few weeks. He feels that this is due to a combination of things including the skills he is learning in the IOP program, the fact that he has not worked recently and his medication and therapy. His symptoms of depression are much improved and he no longer feels hopeless. His energy level and his outlook are both much improved and approaching normal at this point according to the patient. He denies any suicidal or homicidal ideation. He denies passive thoughts of . He is still trying to decide if he wants to quit his current job or not. He plans to return to work part-time next week while finishing up the IOP program and this may give him some information on his decision about his job. He is tolerating the Wellbutrin well but he has history of chronic ongoing tinnitus which she says has gotten a little worse twice in the past week. In addition he said he has had random pain in his right calf only a few times in the past week or so. I discussed with the patient that I would wait and see what happens with these symptoms and and that I do not feel they are due to the Wellbutrin at this time. Patient had a question about me not diagnosing him with current PTSD. I discussed with the patient that although he has had PTSD and he does have a history of it that he does not have symptoms now that would meet criteria for current PTSD symptoms. He understands that he does have the aftereffects of his trauma. Current Psychiatric Medications: [] Trintillex 20 mg p.o. daily (for a few years); Klonopin 0.5 mg as needed (only uses it once or twice a week).; Wellbutrin XL 150 mg p.o. every morning (x3 weeks). Mental Status Examination: [] Patient is an overweight 35-year-old male who is seen wearing a mask due to the pandemic. He has no psychomotor agitation or retardation. His eye contact is good and his speech is normal rate and rhythm and fluent with no pressure. He no longer has a response latency. His responses are in normal time. His mood is euthymic today. Affect is full and normal. There is no sighing between answers. His thought process is goal- directed and organized. Thought content: No evidence of suicidal or homicidal ideation. No evidence of thoughts of or hallucinations or delusions. Judgment is intact. Insight: Some present and improving. Impulsivity: Low. Diagnoses: [] [place] I: [] Major depressive disorder, recurrent, severe without psychosis; panic disorder; history of PTSD [place] II: [] Deferred [place] III: [] History of head trauma; history of temporary heart arrhythmia [place] IV:[]] Work issues Plan: [] The patient will continue the IOP program at [facility] as the structure, support, education, individual and group therapy will hopefully continue to benefit the patient and prevent worsening of his symptoms. He felt safe during the interview and if at any time he does not feel safe he will let us know or go to the emergency room. The risks, options, and possible complications or side effects of the medication were discussed with the patient and he understands and accepts these. He will continue his current medications at their current doses. A refill was sent in for Wellbutrin XL 150 mg, #30, 1 refill. The patient will continue to follow-up with his outpatient psychiatric providers.
--- NOTE | 2020-05-24 14:05 | BH.MDN ---
Multi-Disciplinary Note - Note 60-min Individual Time Started:: 10:39 Date: 05/24/20 Purpose of session/treatment goals addressed:: The purpose of this session was to address current symptoms, stressors, and negative thoughts. Another goal was to address barriers and benefits to making changes using a decisional balance exercise. Other topics included returning to work and coping skills. Eye Contact:: Fair Motor Activity:: Appropriate Appearance:: Casual Speech:: Appropriate Mood:: Anxious, Dysthymic Affect:: Other - unable to gather due to client wearing a mask for COVID-19 protocol Thoughts:: Other - ruminations, No evidence of hallucinations/delusions noted Staff Interventions:: Therapist used active listening and open-ended questions to explore client's current stressors, symptoms, and negative thoughts. Therapist used cognitive restructuring to help client identify and challenge distorted thoughts reinforcing depression and anxiety. Therapist used a decisional balance tool to help client identify the pros and cons of his options for work. Therapist also helped client gain awareness of client?s most important values and his coping skills for each option. Therapist gave client homework to identify additional coping skills he could use when returning to work. Client Response:: Client responded well to session, open to meeting with therapist. Client shared he has been practicing some thought challenging, but he struggled due to feeling anxious and dreading work. Client reported he is worried that he will return to work and feel the same way he did before he went on FMLA. Prior to going on FMLA, client could not concentrate, was feeling depressed and hopeless, and his work performance was negatively impacted because of it. 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 Client stated this has triggered a lot of distortions for client as well as fear of failure. Client willing to weigh his options for next week. 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 stay on FMLA for another two weeks, 3. quit and find a new job. Client stated quitting is not a realistic option right now, so client weighed the pros and cons of options 1 and 2. 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 Client shared there will be anxiety and conflict no matter what, and that if he does not face it now it will only get worse. Client also recognized that he has more ability to cope than he gives himself credit for. Receptive to practicing thought challenging in the moment and identifying coping skills for homework. Risks/Concerns:: Client denies any suicidal ideations, plan, or intent as of 05/24/20. Client is future oriented and has multiple protective factors. Progress Toward Goals/Plan:: Client appears to be making positive strides AEB client?s increased acknowledgement in his ability to cope and improving ability to challenge distortions with assistance. Client has also been using more opposite action which is progress. Client has been a supportive group member and gives positive feedback to peers. Client continues to endorse a depressed mood, anhedonia, crying spells, low self-esteem, lack of concentration, ruminations, and anxiety. 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 Will continue IOP tx to prevent decompensation of symptoms, increase self-confidence, and improve daily functioning. Time Stopped:: 11:33
--- NOTE | 2020-05-25 10:15 | BH.SGPN.GN ---
Behaviors/Verbalizations/Mental Status: []Client alert and oriented, neatly dressed and groomed. Eye contact good. Motor activity appropriate. Speech within normal limits. Affect unable to gather due to wearing a mask for COVID-19 protocol, mood dysthymic. Thoughts linear, logical, no signs of hallucinations or delusions. Client Response/Progress/Benefit: []Client responded well to session, engaged and participating in group discussion. Client connected with the quote and provided examples to help the group differentiate between ruminating and reflecting for growth. Client helped group identify the importance of change which included: growth, less anxiety and depression, confidence, and happiness. Group also identified barriers keeping clients from changing which included: fear of the unknown, fear of failure, comfort, and habit. Participated in the discussion of the different zones of change including the pros and cons of each. Client shared he has struggled to get out of his comfort zone which has kept client stuck. Client described his comfort zone as ?bored, repetitive, apathetic, and being lazy.? Client stated that even though it is scary to get out of his comfort zone, that is where growth happens.? Appeared to benefit from gaining awareness of the benefits of change as well as the different zones of change. Will continue IOP tx to promote the use of healthy coping skills to further reduce anxiety and negative thinking. Narrative Note: []
--- NOTE | 2020-05-25 11:13 | BH.SGPN.GN ---
Behaviors/Verbalizations/Mental Status: []Client alert and oriented, casually dressed and groomed. Eye contact good. Motor activity appropriate. Speech within normal limits. Affect unable to gather due to client wearing a mask per COVID-19 protocol, though appears congruent, mood anxious and dysthymic. Thoughts linear, logical, no signs of hallucinations or delusions. Client Response/Progress/Benefit: []Pt was engaged throughout AEB contributing some to discussion on ?comfort zone? of behavior and potential costs as well as benefits of remaining in the comfort zone. Pt reported that for him the comfort zone can lead to: boredom, apathy, repetition, and decreased energy/motivation levels. Did well to work with the group on identifying potential mental health costs of remaining in one?s comfort zone which included: staying stuck, lack of personal growth, resistance to change, disengagement, and lack of motivation. Pt shared small steps she can take to step out of pt?s comfort zone as: reading through one full book just for leisure and not getting on ?Twitch? as a means of distraction throughout the day. Pt contributed to discussion reviewing importance of accountability in following through with identified goals. Appeared to benefit from psychoeducation and working with the group to brainstorm strategies for improving personal accountability. Pt identified using visual reminders and writing out potential costs of not working on his goals as ways to promote personal accountability. Progress noted in increased ability to challenge distorted thought patterns, though continues to struggle in this area. Pt will continue IOP tx to promote gains, further increase ability to manage depression, and improve daily functioning. Narrative Note: []
== END 2020-05-26 23:59 ==
LOC: BHIOP 09:00
PROVIDERS: PCP Internal Medicine; Referring Provider Psychiatry & Neurology Psychiatry; Visit Provider Psychiatry & Neurology Psychiatry
DX: F33.2 Major depressive disorder, recurrent severe without psychotic features (principal); F41.0 Panic disorder [episodic paroxysmal anxiety]; F43.10 Post-traumatic stress disorder, unspecified; Z79.899 Other long term (current) drug therapy; Z62.810 Personal history of physical and sexual abuse in childhood; Z91.5 Personal history of self-harm
CPT/HCPCS: H0035; 90832; 90837; 90853

== ENCOUNTER 2020-05-29 09:00 | Outpatient (RCR) | payer OTHER, SELFPAY ==
[2016-09-27 05:25] VITALS: BMI 38.3
[2020-05-27 00:38] VITALS: BP 132/84; PULSE 72
--- NOTE | 2020-05-29 09:01 | BH.SGPN.GN ---
Behaviors/Verbalizations/Mental Status: [] Client alert and oriented, casual dress. Eye contact fair to good, often looking down throughout session. Motor activity appropriate. Speech within normal limits, soft. Mood dysthymic, anxious. Affect congruent, though difficult to gather due to client wearing mask per [address] guidelines. Thoughts linear, logical, no signs of hallucinations or delusions. Reviewed client?s symptom tracker, no signs of suicidal ideation, plan, or intent as of today. Client Response/Progress/Benefit: [] Pt responded well to session, engaged throughout. Reports feeling very anxious today as he returns to work tomorrow and is nervous about doing so. Indicated that he has not thought about how he will manage his anxiety or stress levels throughout the work day but was planning to take it ?one thing at a time?. Receptive of working with the group to identify small things he can do to help prepare himself such as looking through his IOP binder and creating a list of healthy coping skills or taking small breaks throughout the workday. Pt additionally identified that focusing on positive self-talk would be beneficial as well. Pt continues to struggle with identifying personal wins or giving himself credit for areas of progress. With encouragement pt identified that he did well not to focus on his stressors over the weekend and instead was able to enjoy his son?s birthday republican. Progress in pt ability to identify some wins, though continues to struggle with significant distortions preventing consistent progress. Pt receptive of and appeared to benefit from identifying small areas of progress as well as giving himself credit for personal wins. Will continue IOP tx to increase application of anxiety management skills, improve thought challenging skills, and prevent decompensation. Narrative Note: []
--- NOTE | 2020-05-29 10:20 | BH.SGPN.GN ---
Behaviors/Verbalizations/Mental Status: []Client alert and oriented, casual dress, hygiene tended to. Eye contact fair. Motor activity appropriate. Speech within normal limits. Affect could not be assessed due to pt wearing a mask as a COVID-19 required precaution. Mood depressed. Thoughts linear, logical, no signs of hallucinations or delusions. Client Response/Progress/Benefit: []Pt passive participant AEB pt providing limited contributions during discussion, however, did appear to listen attentively. Group identified barriers to healthy communication included: racing thoughts, difficulty concentrating, non-verbals, unmanaged emotions, freeze, mind-reading, and difficulty forming sentences. Group identified importance of effective communication to included: feeling understood, helps us clarify/be on the same page, feel respected, helps relationships, increases support, and challenges negative perspective. Pt to continue IOP level of care to increase utilization of healthy coping skills, continue to practice challenge negative thought patterns and prevent decompensation. Narrative Note: []
--- NOTE | 2020-05-29 11:20 | BH.SGPN.GN ---
Behaviors/Verbalizations/Mental Status: []Client alert and oriented, neatly dressed and groomed. Eye contact fair. Motor activity appropriate. Speech within normal limits. Affect unable to gather due to wearing a mask for COVID-19 protocol, mood dysthymic and anxious. Thoughts linear, logical, no signs of hallucinations or delusions. Client Response/Progress/Benefit: []Client responded well to session AEB client listening attentively to others and providing input at times during discussion. Engaged in activity and processing importance of being clear and specific when communicating with others. Client stepped out of his comfort zone by volunteering during the activity. Group worked together to identify strategies that helped them during the activity which included: asking for clarification, rephrasing, being clear, not giving up, and actively listening. Attentive during psychoeducation on [employer].E.[employer].A[employer]N, a strategy to improve communication, and selected a skill from this strategy to practice. Client stated he plans to work on having awareness of his emotions, tone of voice, and body language when he communicates. Client seemed to benefit from increasing awareness of healthy strategies to improve communication. Client continues to struggle with regulating his anxiety and challenging negative thoughts on a consistent basis. Will continue IOP tx to promote the use of healthy coping skills, improve self-confidence, and further improve work-related functioning. Narrative Note: []
--- NOTE | 2020-05-29 14:07 | BH.MDN ---
Multi-Disciplinary Note - Note 60-min Individual Time Started:: 12:20 Date: 05/29/20 Purpose of session/treatment goals addressed:: The purpose of this session was to address current symptoms, stressors, and negative thoughts. Another goal was to create a return to work coping plan. Eye Contact:: Fair Motor Activity:: Appropriate Appearance:: Disheveled - hair unwashed Speech:: Appropriate Mood:: Anxious, Dysthymic Affect:: Congruent - tearful at times Thoughts:: Linear, Logical, No evidence of hallucinations/delusions noted Staff Interventions:: Therapist used active listening and open-ended questions to explore client's current stressors, symptoms, and negative thoughts. Therapist used cognitive restructuring to help client identify and challenge distorted thoughts reinforcing depression and anxiety related to work. Therapist created a return to work plan which included: warning signs, stress management tips, internal support, self-care, and external support. Therapist assisted client in completing the work action plan and identify strengths. Gave homework to have client ask his and sons to write client notes of encouragement. Client Response:: Client responded well to session, open to meeting with therapist. Client reported he is still anxious and having negative thoughts about tomorrow, but his outlook has improved. Discussed self-fulfilling prophecies and how one's thoughts can lead to undesirable situations because of one's response to the negative thoughts. Client receptive to completing a return to work plan. Client identified his warning signs to be: shutting down, not making jokes, lack of concentration, and ruminations. Client's internal coping skills included: taking a break outside, challenging negative thoughts, listening to music, being prepared in the morning, and reminding himself this is temporary. Client struggled to identify external support because he is not close with co-workers. Eventually able to identify that he can ask his and sons for support through note writing. Client also reported the director is an advocate for mental health and could be a support. Client stated his negative thoughts are likely a reason why he is not close with co-workers and that they would probably be supportive. Willing to practice self-care tonight to reduce stress. Risks/Concerns:: Client denies any suicidal ideations, plan, or intent as of 05/29/20. Future oriented. Progress Toward Goals/Plan:: Client appears to be making positive strides AEB client?s increased acknowledgement in his ability to cope and improving ability to challenge distortions with prompting. Client has been actively practicing opposite action and is getting better with using cognitive restructuring. Client continues to endorse a depressed mood of decreased intensity, low motivation, low self-esteem, difficulty concentrating at his baseline, ruminations, and anxiety. Client goes back to work tomorrow, client is still anxious, but his outlook has improved since last week. Will continue IOP tx to promote gains in mood stability, increase self-confidence, and further decrease distorted thought patterns. Time Stopped:: 13:20
--- NOTE | 2020-06-01 10:10 | BH.SGPN.GN ---
Behaviors/Verbalizations/Mental Status: []Client alert and oriented, casual dress, hygiene tended to. Eye contact fair, at times struggling to keep eyes open due to fatigue. Motor activity appropriate. Speech within normal limits. Affect unable to assess as pt wearing a mask per COVID-19 protocol, mood dysthymic. Thoughts linear, logical, no signs of hallucinations or delusions. Client Response/Progress/Benefit: []Pt responded well to session AEB contributing some to discussion, actively listening to others, and taking notes throughout; however, remained mostly passive due to struggling with fatigue throughout. Pt appeared to connect well with topic of resilience and indicated that for him resilience means ?weathering a problem/stressor and being able to come back from it?. Pt worked with the group to identify potential consequences of resisting rather than adapting when faced with trauma or adversity. Costs included: lashing out, increased depression and anxiety, panic, and a negative impact on overall ability to function. Pt reported that resistance can continue to ?keep you stuck? in life. He remained attentive during psychoeducation on various reynolds factors in developing personal resilience. Pt actively contributed during small group discussion identifying benefits of each factor in fostering resilience. Pt seemed to benefit from increasing awareness of strategies to increase personal resilience and the impacts of resilience on managing mental health sx. Progress noted in pt improved mood and ability to more actively practice positive self-talk. Pt to continue IOP to continue use of healthy coping, continue to challenge distorted thoughts and give self credit for accomplishments, as well as prevent decompensation. Narrative Note: []
--- NOTE | 2020-06-01 11:09 | BH.SGPN.GN ---
Behaviors/Verbalizations/Mental Status: []Client alert and oriented, casually dressed and groomed. Eye contact good. Motor activity appropriate. Speech within normal limits. Affect unable to gather due to client wearing a mask for COVID-19 protocol, mood euthymic. Thoughts linear, logical, no signs of hallucinations or delusions. Client Response/Progress/Benefit: []Client engaged participant as evidenced by client providing input throughout discussion and listening attentively to peers. Client participated in the discussion of how each resiliency component can help increase personal resiliency. Client identified current resiliency traits he currently possesses and then identified what trait he would like to improve. Client reports belief he has been using the resiliency traits of accepting that change is a part of living and self-awareness. Client reported these traits have helped client understand his actions and view change as optimistic. Client stated he would like to work on moving toward his goals. Client identified strategies to help with this such as figuring out what keeps client accountable, setting reminders, and setting SMART goals. Client appeared to benefit from increasing insight to ways in which client can improve resilience to adversity and daily stressors. Progress noted in client?s self-report of practicing thought challenging when he returned to work this week. Will continue IOP tx to promote gains and further decrease negative thoughts that reinforce depressive symptoms. Narrative Note: []
--- NOTE | 2020-06-02 10:20 | BH.SGPN.GN ---
Behaviors/Verbalizations/Mental Status: [] Client alert and oriented, casually dressed and appropriately groomed. Eye contact good. Motor activity appropriate. Speech within normal limits. Affect congruent, mood euthymic and anxious. Thoughts linear, logical, no signs of hallucinations or delusions. Client Response/Progress/Benefit: [] Pt was an engaged, provided increased input throughout. Connected with the topic of obstacles and solutions and worked with group to identify common internal and external barriers that keep people stuck. Identified that he has struggled with personalizing external barriers problems in the past. Group identified; self-doubt, negative thinking, unhealthy coping skills, poor boundaries, and lack of motivation as potential internal barriers that could prevent progress towards a better quality of life. Pt shared current reality as trying to reach for a goal but feeling stuck and as though he can?t reach his hands out to grad the goal. Noted that feelings of being stuck have resulted in pt experiencing increased distorted thoughts at times. Pt's realistic, desired reality is to be able to have the skills and ability to reach out for the goals he is working towards. Benefited from group as client was able to identify current mental health state and impact of internal barriers on progress. Progress noted in pt improved overall mood and willingness to more actively challenge negative thoughts and provide positive feedback to fellow participants. Will continue IOP tx to promote change behaviors, increase application of healthy coping skills for managing intrusive thoughts, as well as improve functioning. Narrative Note: []
--- NOTE | 2020-06-02 11:20 | BH.SGPN.GN ---
Behaviors/Verbalizations/Mental Status: []Client alert and oriented, neatly dressed and groomed. Eye contact good. Motor activity appropriate. Speech within normal limits. Affect unable to gather due to wearing a mask for COVID-19 protocol, mood euthymic. Thoughts linear, logical, no signs of hallucinations or delusions. Client Response/Progress/Benefit: []Client was an active participant in group discussion and attentive during the activity. Engaged during activity and provided ideas on how to cope with internal barriers that keep clients stuck from moving towards goals. Barriers identified by client were: lack of self-confidence, labeling, and lack of motivation. Group helped identify strategies to combat barriers identified by group members. Client reported he would like to work on overcoming the barrier of lack of motivation. Client shared he will do this by setting smart goals and gathering more information. Benefited from group by identifying obstacles and solutions to desired reality. Progress noted in client?s increased self-awareness of barriers and generalization of coping skills. Will continue IOP tx to further reduce anxiety and depression while increasing confidence in coping skills. Narrative Note: []
--- NOTE | 2020-06-05 09:03 | BH.SGPN.GN ---
Behaviors/Verbalizations/Mental Status: []Client alert and oriented, casual dress. Eye contact fair to good. Motor activity appropriate. Speech within normal limits. Mood agitated. Affect constricted, though difficult to gather due to client wearing mask per [address] guidelines. Thoughts linear, logical, no signs of hallucinations or delusions. Reviewed client?s symptom tracker, no signs of suicidal ideation, plan, or intent as of today. Client Response/Progress/Benefit: []Client responded well to session, attentive and receptive to feedback. Client reports feeling anxious this morning. Client shared he feels worried because this week is client's last week in IOP and then client returns to work full-time. Client shared coming to group has become client's new normal, and he will feel uncomfortable without this structure. Discussed ways client can continue to support himself without the structure of IOP. Client acknowledged that he is handled his stressors better than he has in the past and that he recognizes that he has made progress. Client appeared to benefit from pointing out personal progress to combat distortions. Will continue IOP tx through the week to reinforce healthy coping skills, improve mood stability, and further combat distortions. Narrative Note: []
--- NOTE | 2020-06-05 10:06 | BH.SGPN.GN ---
Behaviors/Verbalizations/Mental Status: []Client alert and oriented, casually dressed and groomed. Eye contact fair to good. Motor activity appropriate. Speech within normal limits, quiet. Affect unable to assess as client wearing mask per COVID-19 protocol, mood anxious and depressed. Thoughts linear, logical, no signs of hallucinations or delusions. Appearing to be experiencing ruminating thoughts. Client Response/Progress/Benefit: [] Client receptive of group and mostly attentive during the discussion and activity portion, however remained a primarily passive participant. Client listened during group discussion on importance of managing emotions on continued mental health and wellness. Appeared to connect with group as participants identified potential costs of not managing their emotions. These included; needs not getting met, increased depression and anxiety, lashing out on others, relationship tension, and ?staying stuck?. Discussed that this has led to miscommunication in his own life in the past. Client participated in the challenge activity and did well to support fellow participants as well as take direction from the group. Expressed experiencing some stress and temptation to disengage during the activity. Indicate he was able to use grounding and slowing himself down to better manage emotions in the moment. Client appeared to benefit from increasing awareness of how emotions can impact mental health and practicing in the moment coping skills. Progress noted in client improved use of self-talk and thought challenging; however, he continues to struggle with distorted thinking patterns impacting overall engagement and skill application. Client will continue IOP tx to further decrease depression and anxiety, improve coping skill application and ability to challenge thoughts, as well as improve daily functioning. Narrative Note: []
--- NOTE | 2020-06-05 11:10 | BH.SGPN.GN ---
Behaviors/Verbalizations/Mental Status: []Client alert and oriented, casually dressed and appropriately groomed. Eye contact fair. Motor activity appropriate. Speech within normal limits. Affect could not be assessed due to pt wearing a mask as a requirement during COVID-19 pandemic. mood anxious and dysthymic. Thoughts linear, logical, no signs of hallucinations or delusions. Client Response/Progress/Benefit: []Client needed encouragement to engage in session. Eventually client provided some input during discussion and appeared to listen attentively to peers. Attentive during psychoeducation on 4 zones of regulation. Client able to identify feelings and behaviors for each zone. Client reported when he is in the yellow zone he tends to be withdrawn, less eye-contact, makes more mistakes, and poor decision making. Group identified coping skills one can use to support self in each zone which included: opposite action, exercise, positive self-talk, upbeat music, meditate, and grounding. Client stated belief that he most often is in the yellow zone which he recognizes can lead to the blue zone with feeling depressed. Benefited from increased education on zones of regulation or stages of alertness for emotions and healthy coping skills to use for each zone. Will continue IOP tx to continue use of healthy coping skills, reduce negative thinking, and prevent decompensation. Narrative Note: []
--- NOTE | 2020-06-08 09:05 | BH.SGPN.GN ---
Behaviors/Verbalizations/Mental Status: [] Eye contact is good. Motor activity is appropriate. Appearance is casual. Speech is Appropriate. Mood is anxious. Affect is congruent. Thoughts are linear and logical. No evidence of psychosis. Reviewed daily check in sheet and no reports of suicidal ideations or intent. Client Response/Progress/Benefit: [] Pt was an active participant in group discussion. Emotion for today is sitting with the uncomfortable. Shared that he has started to utilize thought reframing and challenging cognitive distortions prior to and at work. Also trying affirmations at work as well. Believes that this has helped to a degree. Functioning at work and not as stressed as before. Had a small panic attacks at work however notes that it only lasted a few moments and his skills helped. I've been working through my struggles. Progress noted per pt report. Benefited from group support, encouragement, and feedback. Will continue in IOP to maintain gains and transition back to work full-time. Narrative Note: []
--- NOTE | 2020-06-08 11:00 | BH.MDN_ITS ---
Multi-Disciplinary Note - Note 30-min Individual Time Started:: 10:35 Date: 06/08/20 Purpose of session/treatment goals addressed:: The purpose of this session was to review client's progress and review strategies that will promote mood stability and gains made in IOP. Another goal was to discuss discharge recommendations and process any current stressors. Eye Contact:: Good Motor Activity:: Appropriate Appearance:: Neat Speech:: Appropriate Mood:: Euthymic Affect:: Congruent - laughing throughout Thoughts:: Linear, Logical, No evidence of hallucinations/delusions noted Staff Interventions:: Therapist used open-ended questions to explore client's thoughts on personal progress. Therapist reviewed supports and coping skills with client to promote gains and prevent setbacks. Therapist discussed aftercare plan with client and used strengths-perspective to empower client on the goals client has accomplished. Therapist discussed the benefits of ongoing maintenance and use of daily coping skills. Therapist gave client a quote collage for closure. Client Response:: Client responded well to session, open to meeting with therapist. Client reports feeling bittersweet about it being his last week in [facility]. Client stated coming to [facility] has become his new routine and normal. Discussed alternative ways to incorporate the skills learned in [facility] into a new routine. Client willing to discuss progress since admission. Client recognized that when he began IOP client was unable to identify any positives about himself. Today client started with positives about himself which is significant. Client self-identified progress in his ability to challenge negative thinking, set back and gain new perspectives, feeling more hopeful and optimistic, having more coping skills, and increased confidence and acceptance. Client also review ed his healthy coping skills which will help client maintain gains and prevent setbacks. Client's coping skills included: thought challenging, self-care, self- compassion, grounding, opposite action, and dialectical thinking. Client reports he still wants to work on further reducing anxiety and moving towards goals in life, but client stated his is in a better place to do that now. Risks/Concerns:: Client denies any suicidal ideations, plan, or intent as of 06/08/20. Hopeful and future oriented. Progress Toward Goals/Plan:: Client has responded well to treatment and has made great progress while in [facility]. Client self-reports overall improved mood, increased confidence, more positive thinking, increased ability to cope with stressors, and more coping skills. Client reports increased ability to identify and challenge negative thinking. Client still endorses some symptoms of anxiety, depression, and has negative thinking, but it is of reduced intensity. Will discharge from [facility] on Friday06/09/20.
--- NOTE | 2020-06-08 11:10 | BH.SGPN.GN ---
Behaviors/Verbalizations/Mental Status: []Client alert and oriented, casually dressed and groomed. Eye contact good. Motor activity appropriate. Speech within normal limits. Affect difficult to assess as pt wearing a mask due to COVID-19 hospital protocol, mood euthymic. Thoughts linear, logical, no signs of hallucinations or delusions. Client Response/Progress/Benefit: []Client an active participant throughout AEB contributing to discussion, taking notes, and providing supportive feedback. Client participated in group activity highlighting the various barriers to effectively utilizing supports and strategies for promoting effective use. Shared that self-doubt can be a barrier to reaching out to supports. Client participated in discussion reviewing strategies to improve overall use of current supports as well as how to begin building new supports. Client identified he would like to remind himself to more actively listen to his supports when they provide encouragement rather than disqualify the feedback. Noted that this will improve his relationships as well overall self-confidence levels. Client seemed to benefit from identifying a strategy for improving support he would like to begin implementing in his own life. Progress noted by client's improved mood and ability to challenge negative thinking patterns that have maintained depression in the past. Client to continue in IOP tx to continue to promote healthy change behaviors, further improve symptom management, and maintain gains made. Narrative Note: []
--- NOTE | 2020-06-09 07:26 | BH.AFTERPLAN ---
Aftercare Plan - Demographics Treatment End Date:: 06/09/20 Psychiatrist:: Paula Mcneil Psychiatrist Office #:: [phone] [facility] Therapist:: Bel Leroy Therapist Phone #:: [phone] - Medications Home Medications: Home Medications Clonazepam [Klonopin] 0.5 mg PO DAILY PRN 05/03/20 Vortioxetine Hydrobromide [Trintellix] 20 mg PO DAILY 05/03/20 Bupropion HCl [Wellbutrin Xl] 150 mg PO DAILY 30 Days #30 [id number] 05/24/20 - Plan Details Progress/Aftercare Plan Details:: Eddie has shown great strides and progress since admission to [facility]. When Eddie started [facility] he was experiencing significant anxiety, panic attacks, depression with isolation, crying spells, inability to concentrate, apathy, and anhedonia. Eddie was feeling low with little hope for the future and had a very hard time identifying positive traits about himself. Now, Eddie can catch and challenge distortions that reinforced anxiety and depression, use healthy coping skills more easily, and he feels more confident in his abilities to cope with mental health and daily stressors. Eddie self-reports progress in feeling more agile and lose towards life, looking more at the positives, improved outlook and mood, increased ability to challenge distortions, feeling less sad, increased coping skills, increased acceptance, increased confidence in his ability to cope, and the ability to step back and think of things differently. Eddie was highly active in both group and individual therapy sessions. Eddie contributed to group discussions, offered emotional support to peers, and pushed himself to participate on more difficult days. In individual sessions, Eddie was receptive to feedback, consistent with homework, and open to reframing distortions. Eddie?s DSM-5 scores decreased overall by 55% since admission. Depression decreased by 63%, anxiety 36%, and angry/irritability by 67%. Eddie?s high motivation, willingness to be uncomfortable, and humorous personality were likely the reason for his significant progress. Eddie plans to continue outpatient counseling at [facility] and medication management through [facility]. Eddie is also able to participate in [facility] aftercare which would start for Eddie on 06/15/20. Strategies for Success:: 1.Opposite action! Continue to break that cycle of anxiety and depression by changing up your behaviors. Remember this doesn?t have to be huge changes, it could be one small step towards your goals. 2. Thought challenging! Remember to challenge distortions and reframe your thinking! Some distortions to be aware of include labeling, personalizing, all or nothing thinking, and disqualifying the positives. Challenge fear of failure and be kind to yourself. 3. self-care! You deserve to take time for you, which includes taking breaks, reading a damn book, giving yourself credit, etc. 4. Continue to believe that change is possible. I mean look how far you have come in the past month! 5. Challenge your perspective and practice self-compassion. Ask yourself if your expectations are truly realistic and use that dialectical thinking! 6. Stick to your routines. (meds, sleep, therapy, etc.) and schedule time for your mental health to replace IOP. 7. Set small, realistic goals. 8. Practice positive self-talk and keep track of your strengths. 9. Remember progress isn?t linear! You may have a setback or bump in the road, but that doesn?t mean you?ve lost all progress. 10. Give yourself some credit! You worked your ass off! - Appointments Appointments/Referrals to Other Services:: 1. Follow up with Bon at [facility]. Last appointment on 06/08/20. 2. Follow up with outpatient psychiatry. Next appointment in June. Call us if you need a refill before then. 3. IOP aftercare! Can start on 06/15/20 from 2:00-3:30pm.
--- NOTE | 2020-06-09 09:05 | BH.SGPN.GN ---
Behaviors/Verbalizations/Mental Status: [] Eye contact is good. Motor activity is appropriate. Appearance is casual. Speech is Appropriate. Mood is anxious. Affect is congruent. Thoughts are linear and logical. No evidence of psychosis. Reviewed daily check in sheet and no reports of suicidal ideations or intent. Client Response/Progress/Benefit: [] Pt was an active participant in group discussion. Emotion for today is anxious but excited. Shared with the group that today is his last day in IOP. He is nervous about returning to work full-time however feels that he is functioning more effectively than in the past. Applying the skills that he has learned with benefits. Still feels stressed out and admits that he does not like his job nor does he find it fulfilling. Will continue to apply for other positions however limited availability due to pandemic. He is nervous about ending IOP however does have aftercare set up. Discussed the benefits of IOP and his progress. Progress noted. Today will be last day of IOP. Narrative Note: []
--- NOTE | 2020-06-09 10:14 | BH.SGPN.GN ---
Behaviors/Verbalizations/Mental Status: []Client alert and oriented, neatly dressed and groomed. Eye contact good. Motor activity appropriate. Speech within normal limits. Affect unable to gather due to wearing a mask for COVID-19 protocol, mood dysthymic. Thoughts linear, logical, no signs of hallucinations or delusions. Client Response/Progress/Benefit: []Client responded well to session, attentive and contributing at times. Client connected with the topic of relationships and shared relationships ?can take some of the burden off of you.? Client helped group discuss the benefits of relationships as well as the different types of relationships one can have. Group identified the risk factors for unhealthy relationships which included: substance abuse, low self-esteem, childhood trauma, cycle of abuse, and negative core beliefs. Client helped group develop a list of the consequences that unhealthy relationships have on mental health. These included: poor boundaries, increased depression and anxiety, and negative self-talk. Client shared any type of relationship can become unhealthy, not just romantic ones. Appeared to benefit from increasing awareness of the impact unhealthy relationships can have on mental health. Progress noted AEB client?s report of reduced depressive symptoms and return to work. Will discharge from IOP tx as client has made significant progress towards treatment goals and no longer meets criteria for IOP level of care. Narrative Note: []
--- NOTE | 2020-06-09 11:13 | BH.SGPN.GN ---
Behaviors/Verbalizations/Mental Status: []Client alert and orient. Appearance casual and appropriately groomed. Speech an appropriate rate and tone. Motor activity WNL. Mood euthymic and anxious, affect unable to determine as client wearing mask per COVID-19 protocol. No evidence of delusion or hallucinations.? Client Response/Progress/Benefit: []Client receptive of group, engaged during activity which challenged the group to identify heathy vs. unhealthy behaviors and characteristics of relationships. Expressed agreement that identifying the health of a relationship is more difficult outside treatment environment. Noting that sometimes what is healthy in one relationship is unhealthy in another. Client worked with the group to brainstorm potential strategies for improving own ability to identify whether a relationship is healthy. Strategies for improving insight included: determine if your values align or if you feel you must compromise your own personal values, ask yourself ?is there mutual respect and understanding in the relationship??, take notice of if boundaries are respected, reflect on whether you are supportive of one another during difficult times, and ask yourself ?How do I feel when I am around this person??. Client identified plans to examine whether his values align with values being expressed in current relationships. Client appeared to benefit from increasing awareness of healthy vs. unhealthy relationships. Progress noted in client reports of improved mood, reduced self-deprecation, and increased positive outlook. Client to discharge from [facility] tx given progress made and is encouraged to continue with outpatient counseling to continue to promote gains, further improve symptom management, and promote maintenance. Narrative Note: []
--- NOTE | 2020-06-09 15:02 | BH.DS ---
Discharge Summary - Demographics Date of Admission:: 05/01/20 Discharge Date: 06/09/20 Presenting Problems at Admission:: Client is a 35-year-old male with a history of MDD, KESHAWN, and PTSD. Client was referred to [facility] by his outpatient therapist due to worsening mental health symptoms impacting client's functioning at home and at work. Prior to admission, client reported belief that his mental health is impacting his work and leading to 'brown outs or lost time. Client had been disciplined by his employer and client was fearful he would be terminated. At admission, Client reported significant anhedonia, feeling lost and adrift, poor sleep, hopelessness, low motivation, low energy, isolation, and increased appetite. Client also endorsed panic attacks 1-2 times a week, ruminations, and negative thinking that reinforced anxiety, depression, and low self-esteem. Client shared he was unmotivated to complete daily tasks and could not find melinda in life. Client's symptoms were causing significant impairment in client's social, occupation, and family functioning. Discharge Diagnoses:: Major depressive disorder, recurrent, severe without psychosis F33.2; panic disorder; anxiety disorder, NOS. Reason for Discharge:: Client has made significant progress towards his treatment goals AEB his reduction in DSM-5 symptom scores, self-report of increased ability to manage symptoms, and improved functioning. Client no longer meets criteria for [facility] level of care and will transition to outpatient counseling and [facility] aftercare. - Treatment Progress During Treatment & Response: Client has shown great strides and progress since admission to [facility]. When client started [facility] he was experiencing significant anxiety, panic attacks, depression with isolation, crying spells, inability to concentrate, apathy, and anhedonia. At discharge, client reported the ability to catch and challenge distortions that reinforced anxiety and depression, use healthy coping skills more easily, and feeling more confident in his abilities to cope with mental health and daily stressors. Client self-reported progress in feeling more agile and lose towards life, looking more at the positives, improved outlook and mood, increased ability to challenge distortions, feeling less sad, increased coping skills, increased acceptance, increased confidence in his ability to cope, and the ability to step back and think of things differently. Client was highly active in both group and individual therapy sessions. Client contributed to group discussions, offered emotional support to peers, and pushed himself to participate on more difficult days. In individual sessions, client was receptive to feedback, consistent with homework, and open to reframing distortions. Client?s DSM-5 scores decreased overall by 55% since admission. Depression decreased by 63%, anxiety 36%, and angry/irritability by 67%. Issues Still to be Addressed:: Client can continue to benefit from working on increasing self-esteem, challenging distortions, overcoming fear of failure, and further increasing confidence. Client can also benefit from reinforcing healthy coping skills and practicing them consistently. Discharge Recommendations/Instructions:: Client is recommended to follow up with his outpatient therapist, Bon Nina, at [facility]. Client?s last appointment was on 06/08/20 and client typically meets with Bon weekly. Client will follow up with his outpatient psychiatrist at [facility] for medication management. Client?s next appointment is in June. Client plans to participate in [facility] aftercare which starts for client on 06/15/20 and continues once a week for 12 weeks. Discharge Handout: Complete Discharge Handout with client on aftercare options and continuity of care.
== END 2020-06-09 14:00 | disposition home or self-care (01) ==
LOC: BHIOP 09:00
PROVIDERS: PCP Internal Medicine; Referring Provider Psychiatry & Neurology Psychiatry; Visit Provider Psychiatry & Neurology Psychiatry
DX: F33.2 Major depressive disorder, recurrent severe without psychotic features (principal); F41.0 Panic disorder [episodic paroxysmal anxiety]; F41.8 Other specified anxiety disorders
CPT/HCPCS: H0035; 90832; 90837; 90853

== ENCOUNTER 2020-06-22 14:00 | Outpatient (RCR) | payer OTHER, SELFPAY ==
--- NOTE | 2020-06-22 14:15 | BH.MTP ---
Master Treatment Plan - Patient Information Program Physician:: Dr. Paula Mcneil Primary Therapist:: Bel Leroy - Psychiatric Diagnoses Psychiatric Diagnoses:: Major depressive disorder, recurrent, severe without psychosis F33.2; panic disorder; anxiety disorder, NOS. Diagnosis Code(s):: F 33.2 - Estimated LOS Estimated LOS (in weeks):: 12 Problem/Goal #1 - Problem/Goal #1 Stated Goal:: client will maintain or see a reduction in symptoms AEB client score on the DSM 5 cross-cutting measure and improve client's daily functioning. - Objectives Objective #1 Stated Objective: Client will continue to consistently apply healthy coping skills to maintain progress made in IOP tx. Interventions: Through group therapy, client will review warning signs and triggers as well as healthy coping skills learned in IOP tx to successfully maintain gains while transitioning into outpatient therapy. Discharge Criteria: Client will have accomplished this goal when client's score on the DSM-5 cross-cutting measure has either maintained or reduced over a 12 week period. Target Date: 09/14/20 Review Date: 07/20/20 Status: open Objective #2 Stated Objective: Client will learn and utilize 2-3 maintenance strategies to prevent decompensation. Interventions: Through group therapy, client will be provided with education on healthy maintenance behaviors, relapse prevention techniques, and healthy coping strategies. Discharge Criteria: Client will have accomplised this goal when can report using at least 2 maintenance skills to prevent decompensation. Target Date: 09/14/20 Review Date: 07/20/20 Status: open
== END 2020-06-26 23:59 ==
LOC: BHOG 14:00
PROVIDERS: PCP Internal Medicine; Referring Provider Psychiatry & Neurology Psychiatry; Visit Provider Psychiatry & Neurology Psychiatry
DX: F33.2 Major depressive disorder, recurrent severe without psychotic features (principal); F41.9 Anxiety disorder, unspecified; F41.0 Panic disorder [episodic paroxysmal anxiety]
CPT/HCPCS: 90853

== ENCOUNTER 2020-06-29 14:00 | Outpatient (RCR) | payer OTHER, SELFPAY ==
[2016-09-27 05:25] VITALS: BMI 38.3
--- NOTE | 2020-06-29 14:00 | BH.SGPN.GN ---
Behaviors/Verbalizations/Mental Status: []Client alert and oriented, neatly dressed and groomed. Eye contact good. Motor activity appropriate. Speech within normal limits. Affect unable to gather due to wearing a mask for COVID-19 protocol- but appeared congruent AEB laughing, mood euthymic. Thoughts linear, logical, no signs of hallucinations or delusions. Client Response/Progress/Benefit: []Client responded well to session, checking in using GAPS. Client?s emotion today is ?content? and stated he has been doing well and feeling optimistic. Client reported multiple wins including getting a second interview for a new job and being patient with his kids. Client followed his gameplan from last session which was to practice self-talk. Client has been using self-awareness and thought challenging to manage mood. Receptive of discussion on self-talk and its influence in maintaining long-term mental health stability. Client shared personal benefits of practicing affirmations such as less negative thinking. Provided strategies for improving effective creation and application of believable personal affirmations. Client wrote out two affirmation statements to put on his computer and as a bookmark. Statements were ?I am worth forgiving myself? and ?I?m not my mistakes I?m my solutions.? Progress noted in client?s increased self-worth and confidence. Client to continue aftercare group to promote gains and further increase application of healthy coping skills. Narrative Note: []
--- NOTE | 2020-07-06 14:05 | BH.SGPN.GN ---
Addendum entered and electronically signed by Kasia Duque LSW 07/10/20 14:19: Addendum to add MSE: Eye contact is fair to good, at times appearing to fall asleep. Motor activity is appropriate. Appearance is casual. Speech is Appropriate. Mood is dysthymic. Affect unable to assess as client wearing a mask per COVID-19 protocol. Thoughts are linear and logical. No evidence of psychosis. Original Note: Behaviors/Verbalizations/Mental Status: [] Client Response/Progress/Benefit: []Client responded well to session, checked in using his GAPs worksheet. Client identified struggling this past week with his goal of more actively saying positive affirmations and planning ahead to prevent unnecessary stressors. Expressed however that he has made progress in terms of continued application of other healthy coping skills. Identified recent coping skills used as: thought challenging, practicing daily gratitude, slowing himself down, and actively avoiding unnecessary stressors when possible. Client shared a stressor today is struggling with feeling ?scattered?, though did well to identify ways he can ground himself and focus on one thing at a time rather than becoming overwhelmed by everything he has to do. Client engaged well during the discussion of self-compassion. Noted connecting with the benefits of self-compassion and shared that for him it is much easier to be compassionate towards others than himself as he has struggled with feeling allowed to give himself a break or believing that this is ?self-pitying?. Client appeared to benefit from psychoeducation on the three elements of self-compassion and debunking common myths about what self-compassion is. Client engaged during discussion brainstorming various strategies to improve use of self-compassion. Identified wanting to use a more self-compassionate approach to finding a new job and remaining patient as well as reminding himself it?s okay to take on fewer responsibilities sometimes. Narrative Note: []
--- NOTE | 2020-07-20 13:42 | BH.TPR ---
Treatment Plan Review Date of Admission:: 06/22/20 Date of Treatment Plan Review:: 07/20/20 Admitting Diagnoses:: Major depressive disorder, recurrent, severe without psychosis F33.2; panic disorder; anxiety disorder, NOS. Current Diagnoses:: Major depressive disorder, recurrent, severe without psychosis F33.2; panic disorder; anxiety disorder, NOS. Patient's Response to Treatment:: Client is engaged in IOP aftercare as evidenced by client's participation in group discussions and self-report of consistently applying coping skills such as grounding and thought challenging. Client's overall DSM-5 scores have decreased since admission to aftercare by 17%. Client's DSM-5 scores for depression have maintained since admission and are within the mild range for severity. Client's DSM-5 scores for anxiety have decreased since admission to IOP aftercare by 14%. Client has been consistent with attendance and provides good feedback in sessions. Status of Current Problems and Symptoms: Client has been experiencing anxiety related to employment as client has been interviewing for a new job. Client found out that he got the job which is both exciting and somewhat stressful for client. Client also reports still experiencing panic attacks on a less frequent basis, ruminations, and occasional negative self-talk that reinforces anxiety and depression. Problem #1 Problem Name:: Pt. will maintain or see a reduction in sx AEB client score on the DSM-5 Status of Goals:: Objective 1- complete with ongoing work encouraged. Client?s scores on the DSM-5 for depression have maintained since discharge. Client?s anxiety scores have decreased by 14% since admission to aftercare. Overall, client?s DSM-5 scores have decreased by 17%. Objective 2- complete with ongoing work encouraged. Client has been consistently reporting use of grounding with deep breathing, spending time with family, and thought challenging. Team Recommendations:: Recommended client continue IOP aftercare group in addition to attending regular outpatient counseling in order to reduce DSM-5 symptoms and promote consistent use of healthy coping skills.
--- NOTE | 2020-07-20 14:00 | BH.SGPN.GN ---
Behaviors/Verbalizations/Mental Status: []Client alert and oriented, neatly dressed and groomed. Eye contact good. Motor activity appropriate. Speech within normal limits. Affect congruent, mood euthymic. Thoughts linear, logical, no signs of hallucinations or delusions. Client Response/Progress/Benefit: []Client responded well to session, engaged throughout. Client reviewed his GAPs and shared currently having no stressors as client feels excited about getting a new job. Client reports in the past week he has been using self-reflection, grounding and thought challenging. Client participated in the group discussion of maintenance and the benefits of creating a maintenance plan. Client contributed as the group discussed what components make up a maintenance plan. Client created his own maintenance plan for depression and self-deprecation. Client identified warning signs which included feeling like all he does is wrong, feeling hopeless, and labeling himself. Client's coping skills included: giving himself credit, looking at the evidence, journaling, and talking to supports. Appeared to benefit from creating a maintenance plan to promote gains and prevent setbacks. Will continue aftercare next week. Narrative Note: []
== END 2020-07-26 23:59 ==
LOC: BHOG 14:00
PROVIDERS: PCP Internal Medicine; Referring Provider Psychiatry & Neurology Psychiatry; Visit Provider Psychiatry & Neurology Psychiatry
DX: F33.2 Major depressive disorder, recurrent severe without psychotic features (principal); F41.0 Panic disorder [episodic paroxysmal anxiety]; F41.9 Anxiety disorder, unspecified
CPT/HCPCS: 90853

== ENCOUNTER 2020-07-27 13:58 | Outpatient (RCR) | payer OTHER, SELFPAY ==
[2016-09-27 05:25] VITALS: BMI 38.3
--- NOTE | 2020-07-27 14:05 | BH.SGPN.GN ---
Behaviors/Verbalizations/Mental Status: []Client alert and oriented, casually dressed and groomed. Eye contact good. Motor activity appropriate. Speech within normal limits. Affect unable to assess as client wearing a mask per COVID-19 protocol, mood dysthymic. Thoughts linear, logical, no signs of hallucinations or delusions. Client Response/Progress/Benefit: [] Pt responded well to session, provided input and listened attentively to peers. Reported feeling ?scattered? today and attributed this to struggle self-care time with caregiving responsibilities. Expressed he had previously been able to balance the caregiving tasks with his more but feels lately he has needed to take a more active role as his is struggling with her own mental health needs. Receptive of supportive suggestions and feedback provided by group. Pt engaged in discussion on self-advocacy. Worked with group to identify the benefits of self-advocacy, as well as common barriers. Identified a personal barrier as struggling with motivation to advocate for his own needs, indicating ?sometimes it feels like more of a palomino than it?s worth?. Did well to challenge this thought and worked with group to identify strategies to increase ability to advocate for oneself. Pt reported he wants to work on implementing healthier boundaries and expectations before feeling burnout or that his needs are being ignored/violated. Pt seemed to benefit from reviewing treatment progress and skill application, as well as learning about how to increase self-advocacy. Pt to continue aftercare program to continue to promote skill application, continue use of self-accountability in maintaining healthy coping, and prevent decompensation. Narrative Note: []
--- NOTE | 2020-08-10 14:00 | BH.SGPN.GN ---
Behaviors/Verbalizations/Mental Status: []Client alert and oriented, neatly dressed and groomed. Eye contact fair-on his phone. Motor activity appropriate. Speech within normal limits. Affect unable to gather due to wearing a mask for COVID-19 protocol, mood dysthymic. Thoughts linear, logical, no signs of hallucinations or delusions. Client Response/Progress/Benefit: []Client responded well to session, actively contributing. Client stated overall the past week was good, but client currently feels tired. Client reported he enjoys his new job, got time away with his , and ?lots of good.? Client has been using reaching out to support, thought challenging, and acceptance to cope with symptoms and stressors this week. Client contributed to the discussion on gratitude and its benefits. Client attentive during discussion of internal vs. external gratitude. Client receptive to participating in the group seven-day gratitude challenge. Client selected one gratitude reflection per day and stated he will implement this verbally. Receptive to discussion on intentionality and self-accountability. Client shared he will hold himself accountable by pairing the goal with getting ready for bed each night. Appeared to benefit from connecting with peers and practicing gratitude. Will continue IOP aftercare to promote mood stability and use of healthy coping skills. Narrative Note: []
--- NOTE | 2020-08-15 14:45 | BH.TPR ---
Treatment Plan Review Date of Admission:: 06/22/20 Date of Treatment Plan Review:: 08/15/20 Admitting Diagnoses:: Major depressive disorder, recurrent, severe without psychosis F33.2; panic disorder; anxiety disorder, NOS. Current Diagnoses:: Major depressive disorder, recurrent, severe without psychosis F33.2; panic disorder; anxiety disorder, NOS. Patient's Response to Treatment:: Client engaged in aftercare group AEB client?s mostly consistent attendance, contributions in group and honest self-reflection. Client listens attentively to peers, providing support and feedback to others. Client is receptive to feedback, gentle challenging, and encouragement from staff and peers. Status of Current Problems and Symptoms: Client has been using reaching out to support, thought challenging, and acceptance to cope with symptoms and stressors at times. Recently client has reported increased anxiety and depression due to increase in cornoavirus cases. Client feeling more on edge and dreary. Despite having increased stressors client has been able to manage stressors at his new job and reports job as a positive. Problem #1 Problem Name:: Pt. will maintain or see a reduction in sx AEB client score on the DSM-5 Status of Goals:: Obj 1 - Pt showing decompensation with increased depressive symptoms per the DSM 5 cross-cutting measure. Pt's depression has increased by 40% compared to last tx plan review. Pt showing slight improvement with 33% reduction in anxiety per DSM cross-cutting measure compared to last tx plan review. Obj 2 - complete with ongoing work encouraged. Client has been consistently reporting use of grounding with deep breathing, spending time with family, and thought challenging. Team Recommendations:: Recommended client continue IOP aftercare group in addition to attending regular outpatient counseling in order to reduce DSM-5 symptoms and promote consistent use of healthy coping skills.
--- NOTE | 2020-08-24 14:05 | BH.SGPN.GN ---
Behaviors/Verbalizations/Mental Status: []Client alert and oriented, casual dress, hygiene tended to. Eye contact good. Motor activity appropriate. Speech within normal limits. Affect congruent, mood dysthymic and anxious. Thoughts linear, logical, no signs of hallucinations or delusions. Client Response/Progress/Benefit: [] Pt attentive and provided input throughout. Noted feeling ?anxious? as he has been struggling with feeling overwhelmed by the news and the upcoming election. Shared that he additionally is stressed by the increase in COVID-19 cases as his children have now been transitioned to full-time homeschooling as a result. He did well to identify that although he has several stressors right now, he also has many positives he can pay attention to a noted using reframing as a skill for better managing current stressors. Shared additionally using a gratitude rudy to help keep him focused on the positives. Pt engaged in group discussion reviewing the mental health benefits of establishing a consistent daily routine. Group identified benefits to include: improving sense of purpose, increasing self-confidence, reducing stress, and improving follow through. Connected with discussion on common barriers impacting routine follow-through and engaged in brainstorming strategies to overcome identified barriers. Shared that setting alarms and having someone help hold him accountable helps to keep on track with his routine. Pt identified wanting to improve his current routine by mindfully brushing his teeth after his morning coffee rather than spending that time on the internet each morning. Shared this will help to support his mental health by reducing exposure to unnecessary stressors. Pt seemed to benefit from support from peers and reviewing the mental health benefits of routine. Progress noted in pt self-reports of improved sx management during times of increased stress. Pt to continue aftercare group to improve consistent use of healthy coping, maintain gains, and prevent decompensation. Narrative Note: []
== END 2020-08-26 23:59 ==
LOC: BHOG 13:58
PROVIDERS: PCP Internal Medicine; Referring Provider Psychiatry & Neurology Psychiatry; Visit Provider Psychiatry & Neurology Psychiatry
DX: F33.2 Major depressive disorder, recurrent severe without psychotic features (principal); F41.0 Panic disorder [episodic paroxysmal anxiety]; F41.8 Other specified anxiety disorders
CPT/HCPCS: 90853

== ENCOUNTER 2020-08-31 14:00 | Outpatient (RCR) | payer OTHER, SELFPAY ==
[2016-09-27 05:25] VITALS: BMI 38.3
--- NOTE | 2020-08-31 14:00 | BH.SGPN.GN ---
Behaviors/Verbalizations/Mental Status: []Client alert and oriented, neatly dressed and groomed. Eye contact good. Motor activity appropriate. Speech within normal limits. Affect congruent, mood euthymic. Thoughts linear, logical, no signs of hallucinations or delusions. Client Response/Progress/Benefit: []Client receptive of session, engaged throughout and notes feeling ?calm? today. Client shared he has some underlying nervousness about the election, but overall he has been feeling well. Client stated he followed through with his goal from last session which helped reduce some stress for client in the morning. Client reports using self-care, thought challenging, and self-compassion to cope with his emotions this week. Receptive of discussion on personal accountability and its importance in maintaining mental health stability. Engaged in discussion on different accountability styles and brainstorming strategies for improving ability to hold themselves accountable. Client identified that for homework he wants to exercise five out of the seven days before the next IOP aftercare session. Client reported he can hold himself accountable by creating a visual reminder by making an artistic calendar. Client seemed to benefit from support from peers and increasing understanding of personal accountability benefits and strategies. Progress noted in client?s application of coping skills and optimistic perspective on college. Will continue IOP aftercare group. Narrative Note: []
--- NOTE | 2020-09-14 14:01 | BH.SGPN.GN ---
Behaviors/Verbalizations/Mental Status: []Client alert and oriented, casual dress, hygiene tended to. Eye contact fair. Motor activity appropriate. Speech within normal limits. Affect congruent, mood euthymic, anxious. Thoughts linear, logical. No signs of hallucinations or delusions. Client Response/Progress/Benefit: [] Client responded well to session, attentive and engaged throughout. Client reported he has made progress on goal to more consistently celebrate his wins. Identified skills used to work towards goal as: reframing negative thoughts, reaching out to supports to ask for help and create a plan for managing personal stressors, as well as identifying and challenging use of catastrophizing. Client stated stressor today as struggling to know how to best support his who is currently struggling with her own physical and mental health issues. Contributed during discussion on making healthy choices and the barriers that prevent doing so. Client identified personal barriers to be: fear, difficulties advocating for own needs, as well as negative thought patterns. Client attentive throughout discussion of strategies to improve healthy decision making. 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 and ?emotion brain? as the game plan for the week. Appeared to benefit from reflecting on application of coping skills, identifying barriers, and creating a game plan to improve healthy decision-making skills. Narrative Note: []
--- NOTE | 2020-09-21 13:21 | BH.DS ---
Discharge Summary - Demographics Date of Admission:: 06/22/20 Discharge Date: 09/21/20 Presenting Problems at Admission:: Client discharged from IOP tx and transitioned to IOP aftercare to maintain gains client made in IOP and to reinforce healthy coping skills. At admission to IOP aftercare, client reported experiencing slight symptoms of anxiety and depression. Client was also experiencing life stressors including COVID, finding new employment, and general life stressors. Client also continued to experience some negative thinking and struggled with motivation at times. Despite these stressors, client reported ability to cope more effectively with mental health and was activity using healthy skills. Discharge Diagnoses:: Major depressive disorder, recurrent, mild without psychosis F33.2; panic disorder; anxiety disorder, NOS. Reason for Discharge:: Client has accomplished his tx goals AEB his ability to maintain mood stability and gains made in IOP. Client will transition to traditional outpatient counseling. - Treatment Progress During Treatment & Response: Client responded well to IOP aftercare AEB his consistent attendance and engagement in group sessions. Client experienced ups and downs while in IOP aftercare, but he was able to bounce back quickly. At discharge, Client self-reported that he was experiencing less depression and anxiety. Additionally, client was reporting an improved outlook and increased ability to challenge distortions. Client also got a new job while in IOP aftercare and he finds the work to be a better fit which has helped client's mood and overall mental health. Issues Still to be Addressed:: Client can benefit from ongoing outpatient counseling and medication management to promote gains and reinforce healthy coping skills. Client can continue to work on increasing self-compassion, challenging negative thinking, and setting SMART goals. Discharge Recommendations/Instructions:: Client will continue to follow up with his outpatient provider, Bon Nina, at [facility] for individual counseling as well as his outpatient psychiatrist at [facility] for medication management. Discharge Handout: Complete Discharge Handout with client on aftercare options and continuity of care.
== END 2020-09-25 23:59 ==
LOC: BHOG 14:00
PROVIDERS: PCP Internal Medicine; Referring Provider Psychiatry & Neurology Psychiatry; Visit Provider Psychiatry & Neurology Psychiatry
DX: F33.2 Major depressive disorder, recurrent severe without psychotic features (principal); F41.0 Panic disorder [episodic paroxysmal anxiety]; F41.9 Anxiety disorder, unspecified
CPT/HCPCS: 90853

== ENCOUNTER 2020-11-25 13:05 | Emergency (ER) | payer OTHER, SELFPAY ==
[2020-11-25 13:05] VITALS: BP 154/96; PULSE 80; RESP 16; TEMP 36.2; O2SAT 100; BMI 34.8
[2020-11-25] MEDS: 0.9% Normal Saline 1,000 ML 1000 ML IV (14:04)
--- NOTE | 2020-11-25 14:10 | ED.VISSUMM ---
- ER Visit Summary Date of Service: 11/25/20 Chief Complaint: Chills History of Present Illness: The patient is a 35 M with several days of chills, cold sweats, and mental fogginess. Nothing seemed to bring this on. No fever, cough, respiratory symptoms. No known exposure to COVID-19. No history of this in the past. No other complaints. Physical Examination: Afebrile and vital signs unremarkable. Blood pressure 154/96. Patient is alert and oriented. Exhibits psychomotor slowing. Heart regular. Lungs clear. Abdomen soft. Skin appears normal. Test Results: We will check COVID-19 test, CBC, BMP. Emergency Department Course and Treatment: Patient treated with IV fluids while awaiting results. Testing was unremarkable. Patient may still have COVID-19. He is low risk. Symptomatic care at home. Return for any new or worsening issues. Treatment Plan: As above Disposition: Discharge Impression: Chills This note was generated with [employer] dictation software. It may contain incorrect words, spelling, and punctuation that were not noted in review of the chart prior to signing ED Disposition - Plan for ED Patient: Referrals: Prosper Ro MD [Primary Care Provider] -
[2020-11-25 14:14] LABS: Absolute Lymphocyte Count 1.75 X10^3/uL (0.83-4.51); Absolute Neutrophil Count 2.8 X10^3/uL (2.0-7.7); Basophil# 0.06 X10^3/uL; Basophil% 1.2 % (0-1); Eosinophil# 0.16 X10^3/uL; Eosinophils% 3.1 % (0-5); Hematocrit 45.3 % (40-54); Hemoglobin 15.2 g/dL (13.0-16.5); Lymphocyte # 1.75 X10^3/ul (4.0); Mean Corp Hgb Conc 33.6 g/dL (32-36); Mean Corpuscular Hgb 29.1 pg (27.0-32.0); Mean Corpuscular Volume 86.8 fL (80-94); Mean Platelet Vol. 11.4 fl (6.2-12.0); Monocyte# 0.42 X10^3/uL; Monocyte% 8.2 % (0-10); NRBC Flagged by Analyzer 0 % (0-5); Neutrophil # 2.75 X10^3/uL (2.7-7.7); Neutrophil % 53.3 % (47-70); Platelet Count 209 K/mm3 (150-450); RBC Distribution Width SD 38.3 fl (35.1-43.9); Red Blood Count 5.22 M/mm3 (4.6-6.2); White Blood Count 5.2 K/mm3 (4.4-11.0)
[2020-11-25 14:26] LABS: Anion Gap 4 (5-15); BUN 12 mg/dL (7-18); BUN/Creat Ratio 11.1 RATIO (10-20); Chloride 107 mmol/L (98-107); Creatinine, Serum 1.08 mg/dL (0.70-1.30); EST Glomerular Filtration Rate 82 mL/min (>60); Est Glom Filt Rate - Afr Amer 100 mL/min (>60); Estimated Creatinine Clearance 101.68 ml/min; Glucose 96 mg/dL (74-106); Potassium 4.5 mmol/L (3.5-5.1); Sodium Level 140 mmol/L (136-145)
--- NOTE | 2020-11-25 14:54 | ED.DEP ---
ED Disposition - Plan for ED Patient: Instructions: Preventing the Spread of Infection Understanding Isolation Procedures Referrals: Prosper Ro MD [Primary Care Provider] -
== END 2020-11-25 15:02 | disposition home or self-care (01) ==
LOC: ED 14:13
PROVIDERS: Emergency Provider Emergency Medicine; PCP Internal Medicine
DX: R68.83 Chills (without fever) (principal); Z72.0 Tobacco use; R61 Generalized hyperhidrosis
CPT/HCPCS: 80048; 85025; 87426; 96360; 99282; J7030; A4216